=== PATIENT | female | born 1970 | race Caucasian/White ===

== ENCOUNTER 2016-06-03 18:36 | Observation (INO) | payer OTHER ==
[2016-06-03] MEDS ORDERED: ASPIRIN 81 MG CHEW PO STA (18:57)
[2016-06-03] MEDS ORDERED: NITROGLYCERIN OINT 1 INCH/GM PACKET TOPICAL STA (18:57)
--- NOTE | 2016-06-03 19:00 | ED ---
General Adult HPI - General Chief complaint: Chest Pain Stated complaint: chest pain Time Seen by Provider: 06/03/16 18:50 Source: patient, RN notes reviewed Mode of arrival: wheelchair Limitations: no limitations - History of Present Illness Initial comments: Is a 45-year-old female presents emergency Department complaining of chest pain. Patient states it started at 1:00 this afternoon. Patient states the pain does not radiate anywhere. Patient states however she is short of breath with the pain and the pain is similar to her heart attack pain however it is not as severe. Patient denies any diaphoresis. Patient denies any nausea. Patient states she does have high blood pressure and does continue to smoke. Patient denies any recent fever chills or cough. Patient states the pain is still continuing. Patient denies any abdominal pain patient denies any vomiting or diarrhea. Patient denies headache patient denies numbness weakness. He denies any lightheadedness dizziness or near syncopal episode. - Related Data Home Medications Medication Instructions Recorded Confirmed Budesonide-Formot 160-4.5 Mcg 2 puff INHALATION RT-BID 11/19/15 06/03/16 [Symbicort 160-4.5 Mcg Inhaler] Lisinopril 40 mg PO DAILY 11/19/15 06/03/16 Albuterol Nebulized [Ventolin 2.5 mg INHALATION RT-QID PRN 03/05/16 06/03/16 Nebulized] Metoprolol Tartrate [Lopressor] 50 mg PO BID 03/05/16 06/03/16 Albuterol Sulfate [Proair Hfa] 2 puff INHALATION RT-QID PRN 06/03/16 06/03/16 Ascorbic Acid [Vitamin C] 500 mg PO DAILY 06/03/16 06/03/16 Previous Rx's Medication Instructions Recorded Aspirin 325 mg PO DAILY tab 12/03/15 Atorvastatin [Lipitor] 80 mg PO HS #30 tab 12/03/15 Clopidogrel [Plavix] 75 mg PO DAILY #30 tab 12/03/15 Nitroglycerin Sl Tabs [Nitrostat] 0.4 mg SUBLINGUAL Q5M PRN #50 tab 12/03/15 Allergies Allergy/AdvReac Type Severity Reaction Status Date / Time No Known Allergies Allergy Verified 06/03/16 19:08 Review of Systems ROS Statement: Those systems with pertinent positive or pertinent negative responses have been documented in the HPI. ROS Other: All systems not noted in ROS Statement are negative. Past Medical History Past Medical History: Asthma, Hypertension History of Any Multi-Drug Resistant Organisms: None Reported Past Surgical History: Tubal Ligation Past Anesthesia/Blood Transfusion Reactions: No Reported Reaction Past Psychological History: No Psychological Hx Reported Smoking Status: Current every day smoker Past Alcohol Use History: Occasional Past Drug Use History: None Reported General Exam - General Exam Comments Initial Comments: GENERAL: Patient is well-developed and well-nourished. Patient is nontoxic and well- hydrated and is in mild distress. ENT: Neck is soft and supple. No significant lymphadenopathy is noted. Oropharynx is clear. Moist mucous membranes. Neck has full range of motion without eliciting any pain. EYES: The sclera were anicteric and conjunctiva were pink and moist. Extraocular movements were intact and pupils were equal round and reactive to light. Eyelids were unremarkable. PULMONARY: Unlabored respirations. Good breath sounds bilaterally. No audible rales rhonchi or wheezing was noted. CARDIOVASCULAR: There is a regular rate and rhythm without any murmurs gallops or rubs. ABDOMEN: Soft and nontender with normal bowel sounds. No palpable organomegaly was noted. There is no palpable pulsatile mass. SKIN: Skin is clear with no lesions or rashes and otherwise unremarkable. NEUROLOGIC: Patient is alert and oriented x3. Cranial nerves II through XII are grossly intact. Motor and sensory are also intact. Normal speech, volume and content. Symmetrical smile. MUSCULOSKELETAL: Normal extremities with adequate strength and full range of motion. No lower extremity swelling or edema. No calf tenderness. LYMPHATICS: No significant lymphadenopathy is noted PSYCHIATRIC: Normal psychiatric evaluation. Normal interpersonal interactions appears functionally intact in deals appropriately with others. No signs of depression. No signs of anxiety. Limitations: no limitations Course Vital Signs 06/03/16 06/03/16 06/03/16 18:49 19:08 19:34 Temperature 97.7 F Pulse Rate 86 96 92 Respiratory 18 18 18 Rate Blood Pressure 179/96 149/87 139/88 O2 Sat by Pulse 99 97 97 Oximetry Medical Decision Making - Medical Decision Making EKG shows normal sinus rhythm at 83 bpm PA interval is 112 QRS is 84 QT interval 376 QTC is [address] segment elevation or depression or T wave abnormalities are noted. Chest x-ray was normal. Because of the patient's significant past medical history as well as current symptoms I believe the patient was having unstable angina/70 patient on heparin. I spoke with Dr. WOODARD he was in agreement with admitting the patient I consult cardiology continue heparin nitroglycerin and aspirin on the floor. - Lab Data Result diagrams: 06/03/16 19:06 06/03/16 19:06 Lab Results 06/03/16 06/03/16 06/03/16 Range/Units 19:06 19:06 19:06 WBC 17.1 H (3.8-10.6) k/uL RBC 5.07 (3.80-5.40) m/uL Hgb 15.0 (11.4-16.0) gm/dL Hct 45.1 (34.0-46.0) % MCV 88.9 (80.0-100.0) fL MCH 29.6 (25.0-35.0) pg MCHC 33.3 (31.0-37.0) g/dL RDW 13.2 (11.5-15.5) % Plt Count 340 (150-450) k/uL Neutrophils % 79 % Lymphocytes % 13 % Monocytes % 3 % Eosinophils % 1 % Basophils % 2 % Neutrophils # 13.4 H (1.3-7.7) k/uL Lymphocytes # 2.3 (1.0-4.8) k/uL Monocytes # 0.6 (0-1.0) k/uL Eosinophils # 0.2 (0-0.7) k/uL Basophils # 0.4 H (0-0.2) k/uL PT (9.0-12.0) sec INR (<1.1) APTT (22.0-30.0) sec Sodium 141 (137-145) mmol/L Potassium 4.0 (3.5-5.1) mmol/L Chloride 103 (98-107) mmol/L Carbon Dioxide 25 (22-30) mmol/L Anion Gap 13 mmol/L BUN 12 (7-17) mg/dL Creatinine 0.65 (0.52-1.04) mg/dL Est GFR (MDRD) Af Amer >60 (>60 ml/min/1.73 sqM) Est GFR (MDRD) Non-Af >60 (>60 ml/min/1.73 sqM) Glucose 108 H (74-99) mg/dL Calcium 9.4 (8.4-10.2) mg/dL Magnesium 1.7 (1.6-2.3) mg/dL Total Bilirubin 0.5 (0.2-1.3) mg/dL AST 21 (14-36) U/L ALT 43 (9-52) U/L Alkaline Phosphatase 79 (38-126) U/L Total Creatine Kinase 39 (30-135) U/L CK-MB (CK-2) 0.6 (0.0-2.4) ng/mL CK-MB (CK-2) Rel Index 1.5 Troponin I <0.012 (0.000-0.034) ng/mL Total Protein 7.1 (6.3-8.2) g/dL Albumin 4.0 (3.5-5.0) g/dL 06/03/16 Range/Units 19:06 WBC (3.8-10.6) k/uL RBC (3.80-5.40) m/uL Hgb (11.4-16.0) gm/dL Hct (34.0-46.0) % MCV (80.0-100.0) fL MCH (25.0-35.0) pg MCHC (31.0-37.0) g/dL RDW (11.5-15.5) % Plt Count (150-450) k/uL Neutrophils % % Lymphocytes % % Monocytes % % Eosinophils % % Basophils % % Neutrophils # (1.3-7.7) k/uL Lymphocytes # (1.0-4.8) k/uL Monocytes # (0-1.0) k/uL Eosinophils # (0-0.7) k/uL Basophils # (0-0.2) k/uL PT 10.5 (9.0-12.0) sec INR 1.0 (<1.1) APTT 22.6 (22.0-30.0) sec Sodium (137-145) mmol/L Potassium (3.5-5.1) mmol/L Chloride (98-107) mmol/L Carbon Dioxide (22-30) mmol/L Anion Gap mmol/L BUN (7-17) mg/dL Creatinine (0.52-1.04) mg/dL Est GFR (MDRD) Af Amer (>60 ml/min/1.73 sqM) Est GFR (MDRD) Non-Af (>60 ml/min/1.73 sqM) Glucose (74-99) mg/dL Calcium (8.4-10.2) mg/dL Magnesium (1.6-2.3) mg/dL Total Bilirubin (0.2-1.3) mg/dL AST (14-36) U/L ALT (9-52) U/L Alkaline Phosphatase (38-126) U/L Total Creatine Kinase (30-135) U/L CK-MB (CK-2) (0.0-2.4) ng/mL CK-MB (CK-2) Rel Index Troponin I (0.000-0.034) ng/mL Total Protein (6.3-8.2) g/dL Albumin (3.5-5.0) g/dL Critical Care Time Critical Care Time: Yes Total Critical Care Time: 35 Disposition Clinical Impression: Unstable angina pectoris Disposition: ADMITTED IP TO THIS [facility] Time of Disposition: 20:08
[2016-06-03] MEDS: NITROGLYCERIN SL TABS 0.4 MG TAB SUBLINGUAL STA ×2 (19:03→19:08)
[2016-06-03 19:19] LABS: Basophils # (A) 0.4 k/uL (0-0.2); Basophils % (A) 2 %; CH 29.2; Eosinophils # (A) 0.2 k/uL (0-0.7); Eosinophils % (A) 1 %; HCT 45.1 % (34.0-46.0); HDW 2.36; Luc # (Auto) 0.35; Luc % (Auto) 2; Lymphocytes # (A) 2.3 k/uL (1.0-4.8); Lymphocytes % (A) 13 %; MCH 29.6 pg (25.0-35.0); MCHC 33.3 g/dL (31.0-37.0); MCV 88.9 fL (80.0-100.0); Mean Platelet Volume 7.1; Monocytes # (A) 0.6 k/uL (0-1.0); Monocytes % (A) 3 %; Neutrophils # (A) 13.4 k/uL (1.3-7.7); Neutrophils % (A) 79 %; RBC 5.07 m/uL (3.80-5.40); RDW 13.2 % (11.5-15.5); WBC 17.1 k/uL (3.8-10.6); WBC (Perox) 16.64
[2016-06-03 19:28] LABS: ALT 43 U/L (9-52); AST 21 U/L (14-36); Alkaline Phosphatase 79 U/L (38-126); Anion Gap 13 mmol/L; Blood Urea Nitrogen 12 mg/dL (7-17); Calcium 9.4 mg/dL (8.4-10.2); Carbon Dioxide 25 mmol/L (22-30); Chloride 103 mmol/L (98-107); Glucose 108 mg/dL (74-99); Magnesium 1.7 mg/dL (1.6-2.3); Non-African American GFR(MDRD) >60 (>60 ml/min/1.73 sqM); Sodium 141 mmol/L (137-145); Total Bilirubin 0.5 mg/dL (0.2-1.3); Total Protein 7.1 g/dL (6.3-8.2)
--- NOTE | 2016-06-03 19:41 | XR ---
EXAMINATION TYPE: XR chest 2V DATE OF EXAM: 06/03/2016 7:29 PM COMPARISON: Chest x-ray December 01, 2015. HISTORY: Chest pain and pressure, shortness of breath and cough. TECHNIQUE: Frontal and lateral views of the chest are obtained. FINDINGS: There is no focal air space opacity, pleural effusion, or pneumothorax seen. The cardiac silhouette size is within normal limits. The osseous structures are intact. IMPRESSION: No acute cardiopulmonary process. No significant change from prior.
[2016-06-03 19:48] LABS: Creatine Kinase 39 U/L (30-135)
[2016-06-03 19:52] LABS: Partial Thromboplastin Time 22.6 sec (22.0-30.0); Prothrombin Time 10.5 sec (9.0-12.0)
[2016-06-03 20:01] LABS: Creatine Kinase MB 0.6 ng/mL (0.0-2.4); Troponin I <0.012 ng/mL (0.000-0.034)
[2016-06-03] MEDS ORDERED: HEPARIN SODIUM,PORCINE 5,000 UNIT/ML 1 ML VIAL IV ONE (20:05)
[2016-06-03] MEDS ORDERED: NITROGLYCERIN SL TABS 0.4 MG TAB SUBLINGUAL PRN ×2 (20:08→22:04)
[2016-06-03] MEDS ORDERED: HEPARIN SODIUM,PORCINE/D5W PMX 25,000 UNIT in DEXTROSE/WATER 1 500ML.BAG IV SCH (20:15)
[2016-06-03] MEDS ORDERED: ALBUTEROL NEBULIZED 2.5 MG/3 ML INHALATION PRN ×2 (22:04)
[2016-06-03] MEDS ORDERED: ATORVASTATIN 80 MG TAB PO SCH (22:15)
[2016-06-03] MEDS: METOPROLOL TARTRATE 50 MG TAB PO SCH (22:58)
[2016-06-03] MEDS: PANTOPRAZOLE 40 MG TABLET PO SCH (22:58)
[2016-06-03] MEDS: NITROGLYCERIN OINT 1 INCH/GM PACKET TOPICAL SCH ×2 (23:02→23:03)
[2016-06-04 03:05] LABS: Cholesterol 107 mg/dL (<200); Creatine Kinase 24 U/L (30-135); HDL Cholesterol 53 mg/dL (40-60); Triglycerides 97 mg/dL (<150)
[2016-06-04 03:17] LABS: Creatine Kinase MB 0.4 ng/mL (0.0-2.4); Troponin I <0.012 ng/mL (0.000-0.034)
[2016-06-04] MEDS ORDERED: HEPARIN SODIUM,PORCINE 5,000 UNIT/ML 1 ML VIAL IV PRN (04:12)
[2016-06-04] MEDS: NITROGLYCERIN OINT 1 INCH/GM PACKET TOPICAL SCH (06:22)
[2016-06-04 07:31] LABS: Creatine Kinase 26 U/L (30-135)
[2016-06-04 07:45] LABS: Creatine Kinase MB 0.3 ng/mL (0.0-2.4); Troponin I <0.012 ng/mL (0.000-0.034)
[2016-06-04 07:48] VITALS: RESP 18; TEMP 97.9
[2016-06-04] MEDS ORDERED: SYMBICORT 160-4.5 MCG INHALER INHALATION SCH (08:00)
[2016-06-04] MEDS ORDERED: CLOPIDOGREL 75 MG TAB PO SCH (09:00)
[2016-06-04] MEDS ORDERED: ASPIRIN 325 MG TAB PO SCH ×2 (09:00)
[2016-06-04] MEDS ORDERED: LISINOPRIL 20 MG TAB PO SCH (09:00)
[2016-06-04 11:48] VITALS: BP 112/67; PULSE 89
[2016-06-04] MEDS: METOPROLOL TARTRATE 50 MG TAB PO SCH (11:55)
[2016-06-04] MEDS: PANTOPRAZOLE 40 MG TABLET PO SCH (11:56)
[2016-06-04] MEDS ORDERED: ASCORBIC ACID 500 MG TAB PO SCH (12:00)
--- NOTE | 2016-06-04 12:19 | P.HPIM ---
History of Present Illness H&P Date: 06/04/16 Chief Complaint: Chest pain. This is a history of physical and a 45-year-old white female who has an underlying history of previous myocardial infarctions and coronary artery disease. She is on Plavix but states yesterday at about 1 PM in the afternoon she had significant chest pressure. It did not radiate there is no nausea or diaphoresis but it was very similar, albeit less intense than her previous angina. She was appropriately evaluated and because of her previous history, she was admitted for appropriate unstable angina Review of Systems Constitutional: Denies chills, Denies fever Eyes: denies blurred vision, denies pain Ears, nose, mouth and throat: Denies headache, Denies sore throat Cardiovascular: Reports chest pain, Reports shortness of breath Respiratory: Denies cough Gastrointestinal: Denies abdominal pain, Denies diarrhea, Denies nausea, Denies vomiting Genitourinary: Denies dysuria, Denies hematuria Musculoskeletal: Denies myalgias Integumentary: Denies pruritus, Denies rash Neurological: Denies numbness, Denies weakness Psychiatric: Denies anxiety, Denies depression Endocrine: Denies fatigue, Denies weight change Past Medical History Past Medical History: Asthma, Hypertension, Myocardial Infarction ([place]) Last Myocardial Infarction Date:: 2015 History of Any Multi-Drug Resistant Organisms: None Reported Past Surgical History: Heart Catheterization With Stent, Tubal Ligation Additional Past Surgical History / Comment(s): STENT TO LAD Past Anesthesia/Blood Transfusion Reactions: No Reported Reaction Date of Last Stent Placement:: Past Psychological History: No Psychological Hx Reported Additional Psychological History / Comment(s): PT LIVES WITH BOYFRIEND MARI IN A SINGLE LEVEL HOME THAT HAS 2 STEPS TO GET INTO HOME. PT IS [employer]. NO ASSISTIVE DEVICES. NO OUTSIDE SERVICES. PT DOES FACTORY WORK. Smoking Status: Current every day smoker Past Alcohol Use History: Occasional Past Drug Use History: None Reported - Past Family History Mother Family Medical History: Hypertension Father Family Medical History: Diabetes Mellitus, Hypertension Medications and Allergies Home Medications Medication Instructions Recorded Confirmed Type Budesonide-Formot 160-4.5 Mcg 2 puff INHALATION RT-BID 11/19/15 06/03/16 History [Symbicort 160-4.5 Mcg Inhaler] RX: Lisinopril 40 mg PO DAILY 11/19/15 06/03/16 History Albuterol Nebulized [Ventolin 2.5 mg INHALATION RT-QID PRN 03/05/16 06/03/16 History Nebulized] Metoprolol Tartrate [Lopressor] 50 mg PO BID 03/05/16 06/03/16 History Albuterol Sulfate [Proair Hfa] 2 puff INHALATION RT-QID PRN 06/03/16 06/03/16 History Ascorbic Acid [Vitamin C] 500 mg PO DAILY 06/03/16 06/03/16 History Allergies Allergy/AdvReac Type Severity Reaction Status Date / Time No Known Allergies Allergy Verified 06/03/16 22:15 Physical Exam Vitals: Vital Signs Temp Pulse Pulse Pulse Resp BP BP 06/04/16 11:47 97.9 F 89 18 112/67 06/04/16 07:47 97.9 F 60 18 87/42 06/04/16 04:00 97.8 F 72 16 90/59 06/03/16 21:45 18 06/03/16 21:25 83 18 144/84 06/03/16 20:55 97.3 F L 94 18 134/82 06/03/16 20:45 97.7 F 78 16 124/72 Pulse Ox 06/04/16 11:47 97 06/04/16 07:47 95 06/04/16 04:00 95 06/03/16 21:45 06/03/16 21:25 98 06/03/16 20:55 97 06/03/16 20:45 97 Intake and Output 06/03/16 06/04/16 06/04/16 22:59 06:59 14:59 Intake Total 588.333 Balance 588.333 Intake: IV 440 0.9@20 240 Heparin Sodium,Porcine/ 200 D5w Pmx 25,000 unit In Dextrose/Water 1 500ml. bag @ 9.39 UNITS/KG/HR 20 .01 mls/hr IV .Q24H JARROD Rx#:[id number] Intake, IV Titration 148.333 Amount Heparin Sodium,Porcine/ 148.333 D5w Pmx 25,000 unit In Dextrose/Water 1 500ml. bag @ 9.39 UNITS/KG/HR 20 .01 mls/hr IV .Q24H JARROD Rx#:[id number] Other: Voiding Method Toilet Toilet # Voids 3 Weight 107.5 kg - Constitutional General appearance: obese - EENT Eyes: EOMI - Neck Neck: no lymphadenopathy - Respiratory Respiratory: bilateral: CTA - Cardiovascular Rhythm: regular Heart sounds: normal: S1, S2 - Gastrointestinal General gastrointestinal: no organomegaly, soft, no tenderness - Musculoskeletal Musculoskeletal: gait normal Results CBC & Chem 7: 06/03/16 19:06 06/03/16 19:06 Labs: Abnormal Lab Results - Last 24 Hours (Table) 06/04/16 06/04/16 06/04/16 Range/Units 02:11 02:11 06:49 APTT 32.2 H (22.0-30.0) sec Total Creatine Kinase 24 L 26 L (30-135) U/L Thrombosis Risk Factor Assmnt - Choose All That Apply Any of the Below Risk Factors Present?: Yes Each Factor Represents 1 point: Age 41-60 years, Obesity (BMI >25) Other Risk Factors: No Other congenital or acquired thrombophilia - If yes, enter type in comment: No Thrombosis Risk Factor Assessment Total Risk Factor Score: 2 Thrombosis Risk Factor Assessment Level: Low Risk Assessment and Plan (1) Unstable angina pectoris Status: Acute (2) CAD (coronary artery disease) Status: Acute (3) Hypertension Status: Acute Plan: Given her previous coronary artery disease. Rule out myocardial infarction. Stress Cardiolite test is pending. If negative, anticipate discharge. See orders otherwise. We'll follow elevated white blood cell count. Time with Patient: Greater than 30
--- NOTE | 2016-06-04 12:20 | NM ---
EXAMINATION TYPE: NM stress cardiolite complete DATE OF EXAM: 06/04/2016 11:44 AM COMPARISON: NONE HISTORY: Pain TECHNIQUE: After the intravenous administration of 11 mCi Tc 99m Sestamibi - Rest images obtained 75 minutes post injection. The patient exercised using a CHELITA protocol and 1 minute prior to peak ex ercise was injected with 26.7 mCi Tc 99m Sestamibi - Stress images obtained 30 minutes post injection . FINDINGS: Targeted heart rate was achieved during performance of the study. Review of stress and rest SPECT tha ges demonstrates no distinct perfusion abnormality. Gated analysis shows normal wall motion with an estimated left ventricular ejection fraction of 51 %. IMPRESSION: No scintigraphic evidence for reversible ischemia
--- NOTE | 2016-06-04 12:48 | EST ---
DATE OF SERVICE: 06/04/2016 AGE: 45Y SEX: F HT: - WT: - lbs. Protocol Umer: X Other: Cardiolite Stress Stage: 2 Dur. of Exercise: 4:30 *Heart Rate Blood Pressure *Rest: 72 Rest: 117/83 * *Max. Achieved: 156 Maximum BP: 150/54 85% PMHR: 145 100% PMHR: 175 *METS: 5.2 INDICATIONS: Chest pain. MEDICATIONS: Lisinopril, Symbicort, aspirin, Lipitor, Plavix, Nitrostat, Lopressor, Ventolin, vitamin C, ProAir. Baseline rhythm is sinus mechanism, rate of 72. Normal axis and intervals. Normal electrocardiogram. Baseline blood pressure 117/83 mmHg. Patient exercised Umer protocol for 4 minutes 30 seconds reaching peak rate of 156 beats per minute, which is equal to 89% maximum predicted heart rate; peak blood pressure 150/54 mmHg. Test was terminated due to fatigue. There was no chest pain. Electrocardiograph monitoring revealed a 0.[address] segment depression that resolved in recovery. Cardiolite was injected at peak exercise. CONCLUSION: 1. Poor exercise tolerance with borderline positive electrocardiograph stress testing. 2. Nuclear images will be reported separately.
== END 2016-06-04 15:38 | disposition home or self-care (01) ==
LOC: EC 18:36 → 3OBS 20:08
PROVIDERS: ADMIT Family Medicine; ATTEND Family Medicine
DX: I25.110 Atherosclerotic heart disease of native coronary artery with unstable angina pectoris (principal); J45.909 Unspecified asthma, uncomplicated; D72.829 Elevated white blood cell count, unspecified; I10 Essential (primary) hypertension; I25.2 Old myocardial infarction; F17.200 Nicotine dependence, unspecified, uncomplicated; Z79.02 Long term (current) use of antithrombotics/antiplatelets; Z95.5 Presence of coronary angioplasty implant and graft; Z82.49 Family history of ischemic heart disease and other diseases of the circulatory system; Z83.3 Family history of diabetes mellitus; Z79.899 Other long term (current) drug therapy; Z79.82 Long term (current) use of aspirin; Z79.51 Long term (current) use of inhaled steroids
CPT/HCPCS: 93005 ×2; 96366 ×2; 96376 ×2; 96365; 99291; 36415; 93017; 80061; 80053; 82550 ×2; 82553 ×2; 83735; 84484 ×2; 85025; 85610; 85730 ×2; 71020; 78452; G0378 ×2; A9500; J1644 ×3

== ENCOUNTER 2017-02-03 07:33 | Emergency (ER) | payer OTHER ==
[2017-02-03] MEDS ORDERED: ALBUTEROL NEBULIZED 2.5 MG/3 ML INHALATION STA (07:51)
[2017-02-03] MEDS ORDERED: IPRATROPIUM 0.5 MG/2.5 ML NEBU INHALATION STA (07:51)
[2017-02-03] MEDS ORDERED: DEXAMETHASONE SOD PHOSPHATE 10 MG/ML 1 ML VIAL IV STA (07:52)
[2017-02-03] MEDS ORDERED: KETOROLAC 30 MG/ML 1 ML VIAL IVP STA (07:52)
[2017-02-03] MEDS ORDERED: SODIUM CHLORIDE 0.9% 1,000 ML IV ONE (07:53)
--- NOTE | 2017-02-03 07:55 | ED ---
General Adult HPI - General Chief complaint: Upper Respiratory Infection Stated complaint: CHEST PAIN, SINUSES Time Seen by Provider: 02/03/17 07:39 Source: patient, RN notes reviewed, old records reviewed Mode of arrival: ambulatory Limitations: no limitations - History of Present Illness Initial comments: 46 yo female with history of asthma and CAD presents for evaluation of upper respiratory infection and cough. Patient states she has had nasal congestion, mild sore throat, and cough for the past 5 days. She is to have some difficulty breathing over the past 24 hours. She is a current smoker. She has had subjective fever and chills. No abdominal pain. No nausea vomiting. No central chest pain. She does have some lateral chest tightness with cough. History of previous VT in 2016 status post stenting. Patient states the symptoms are in no way similar to previous VT. - Related Data Home Medications Medication Instructions Recorded Confirmed Metoprolol Tartrate [Lopressor] 50 mg PO BID 03/05/16 02/03/17 Previous Rx's Medication Instructions Recorded Aspirin 325 mg PO DAILY tab 12/03/15 Albuterol Inhaler [Ventolin Hfa 1 - 2 puff INHALATION Q4HR PRN #1 02/03/17 Inhaler] inhaler Azithromycin [Zithromax Z-pack] 0 mg PO DIRECTED #6 tab 02/03/17 predniSONE 50 mg PO DAILY #5 tab 02/03/17 Allergies Allergy/AdvReac Type Severity Reaction Status Date / Time No Known Allergies Allergy Verified 02/03/17 07:43 Review of Systems ROS Statement: Those systems with pertinent positive or pertinent negative responses have been documented in the HPI. ROS Other: All systems not noted in ROS Statement are negative. Past Medical History Past Medical History: Asthma, Hypertension, Myocardial Infarction ([place]) Last Myocardial Infarction Date:: 2015 History of Any Multi-Drug Resistant Organisms: None Reported Past Surgical History: Heart Catheterization With Stent, Tubal Ligation Additional Past Surgical History / Comment(s): STENT TO LAD Past Anesthesia/Blood Transfusion Reactions: No Reported Reaction Date of Last Stent Placement:: Past Psychological History: No Psychological Hx Reported Smoking Status: Current every day smoker Past Alcohol Use History: Occasional Past Drug Use History: None Reported - Past Family History Mother Family Medical History: Hypertension Father Family Medical History: Diabetes Mellitus, Hypertension General Exam Limitations: no limitations General appearance: alert, in no apparent distress Head exam: Present: atraumatic, normocephalic Eye exam: Present: normal appearance, PERRL ENT exam: Present: other (Physical congestion, mild pharyngeal erythema, no tonsillar swelling or exudate) Neck exam: Present: normal inspection Respiratory exam: Present: wheezes. Absent: respiratory distress Cardiovascular Exam: Present: regular rate, normal rhythm GI/Abdominal exam: Present: soft. Absent: distended, tenderness Extremities exam: Present: normal inspection, normal capillary refill. Absent: pedal edema Neurological exam: Present: alert, oriented X3, CN II-XII intact. Absent: motor sensory deficit Psychiatric exam: Present: normal affect, normal mood Skin exam: Present: warm, dry, intact Course Vital Signs 02/03/17 02/03/17 02/03/17 07:34 07:49 08:22 Temperature 97.6 F Pulse Rate 86 78 78 Respiratory 18 16 16 Rate Blood Pressure 193/100 146/109 169/87 O2 Sat by Pulse 98 95 98 Oximetry 02/03/17 02/03/17 08:28 08:43 Temperature Pulse Rate 78 84 Respiratory Rate Blood Pressure O2 Sat by Pulse Oximetry EKG Findings - EKG Comments: EKG Findings:: EKG shows normal sinus rhythm, ventricular rate 75, WA interval 122, QRS duration 84, QTC 433 no signs ischemia Medical Decision Making - Medical Decision Making 46 yo female presenting with upper respiratory tract infection and asthma exacerbation. Patient's given albuterol, Atrovent, steroids, on reevaluation she has increased air entry, has still has mild scattered expiratory wheezing no respiratory distress. Laboratory studies reveal mild leukocytosis 11.3, magnesium is 1.5 and is replaced. Chest x-ray shows no focal pneumonia. Patient will be given a prescription for albuterol, azithromycin, and prednisone. She will follow-up with her primary care physician. Return to emergency department with worsening symptoms. - Lab Data Result diagrams: 02/03/17 08:00 02/03/17 08:00 Lab Results 02/03/17 02/03/17 02/03/17 Range/Units 08:00 08:00 08:00 WBC 11.3 H (3.8-10.6) k/uL RBC 5.41 H (3.80-5.40) m/uL Hgb 15.1 (11.4-16.0) gm/dL Hct 47.9 H (34.0-46.0) % MCV 88.7 (80.0-100.0) fL MCH 27.9 (25.0-35.0) pg MCHC 31.5 (31.0-37.0) g/dL RDW 14.6 (11.5-15.5) % Plt Count 395 (150-450) k/uL Neutrophils % 74 % Lymphocytes % 16 % Monocytes % 4 % Eosinophils % 5 % Basophils % 1 % Neutrophils # 8.4 H (1.3-7.7) k/uL Lymphocytes # 1.8 (1.0-4.8) k/uL Monocytes # 0.5 (0-1.0) k/uL Eosinophils # 0.5 (0-0.7) k/uL Basophils # 0.1 (0-0.2) k/uL PT 10.7 (9.0-12.0) sec INR 1.1 (<1.2) APTT 22.6 (22.0-30.0) sec Sodium 142 (137-145) mmol/L Potassium 4.3 (3.5-5.1) mmol/L Chloride 107 (98-107) mmol/L Carbon Dioxide 25 (22-30) mmol/L Anion Gap 10 mmol/L BUN 10 (7-17) mg/dL Creatinine 0.61 (0.52-1.04) mg/dL Est GFR (MDRD) Af Amer >60 (>60 ml/min/1.73 sqM) Est GFR (MDRD) Non-Af >60 (>60 ml/min/1.73 sqM) Glucose 108 H (74-99) mg/dL Calcium 9.4 (8.4-10.2) mg/dL Magnesium 1.5 L (1.6-2.3) mg/dL Total Bilirubin 0.4 (0.2-1.3) mg/dL AST 20 (14-36) U/L ALT 46 (9-52) U/L Alkaline Phosphatase 82 (38-126) U/L Total Protein 7.2 (6.3-8.2) g/dL Albumin 4.1 (3.5-5.0) g/dL Disposition Clinical Impression: Upper respiratory infection, Asthma exacerbation Disposition: HOME SELF-CARE Condition: Good Instructions: Asthma (ED), Upper Respiratory Infection (ED) Prescriptions: Albuterol Inhaler [Ventolin Hfa Inhaler] 1 - 2 puff INHALATION Q4HR PRN #1 inhaler PRN Reason: Shortness Of Breath Azithromycin [Zithromax Z-pack] 0 mg PO DIRECTED #6 tab predniSONE 50 mg PO DAILY #5 tab Referrals: Reed Champagne MD [Primary Care Provider] - 1-2 days Time of Disposition: 08:50
[2017-02-03 08:11] VITALS: RESP 16
--- NOTE | 2017-02-03 08:15 | XR ---
EXAMINATION TYPE: XR chest 2V DATE OF EXAM: 02/03/2017 COMPARISON: Chest x-ray June 03, 2016 HISTORY: Cough and congestion since Wednesday. TECHNIQUE: Frontal and lateral views of the chest are obtained. FINDINGS: There is no focal air space opacity, pleural effusion, or pneumothorax seen. The cardiac silhouette size is within normal limits. The osseous structures are intact. IMPRESSION: No suspicious acute pulmonary process. No significant change from prior.
[2017-02-03 08:19] LABS: Basophils # (A) 0.1 k/uL (0-0.2); Basophils % (A) 1 %; CH 28.7; CHCM 32.5; Eosinophils # (A) 0.5 k/uL (0-0.7); Eosinophils % (A) 5 %; HCT 47.9 % (34.0-46.0); HDW 2.37; HGB 15.1 gm/dL (11.4-16.0); Luc # (Auto) 0.09; Luc % (Auto) 1; Lymphocytes # (A) 1.8 k/uL (1.0-4.8); Lymphocytes % (A) 16 %; MCH 27.9 pg (25.0-35.0); MCHC 31.5 g/dL (31.0-37.0); MCV 88.7 fL (80.0-100.0); Mean Platelet Volume 7.2; Monocytes # (A) 0.5 k/uL (0-1.0); Monocytes % (A) 4 %; Neutrophils # (A) 8.4 k/uL (1.3-7.7); Neutrophils % (A) 74 %; RBC 5.41 m/uL (3.80-5.40); RDW 14.6 % (11.5-15.5); WBC 11.3 k/uL (3.8-10.6); WBC (Perox) 11.58
[2017-02-03 08:28] LABS: INR 1.1 (<1.2); Partial Thromboplastin Time 22.6 sec (22.0-30.0); Prothrombin Time 10.7 sec (9.0-12.0)
[2017-02-03 08:30] LABS: ALT 46 U/L (9-52); AST 20 U/L (14-36); Alkaline Phosphatase 82 U/L (38-126); Anion Gap 10 mmol/L; Blood Urea Nitrogen 10 mg/dL (7-17); Calcium 9.4 mg/dL (8.4-10.2); Carbon Dioxide 25 mmol/L (22-30); Chloride 107 mmol/L (98-107); Glucose 108 mg/dL (74-99); Magnesium 1.5 mg/dL (1.6-2.3); Non-African American GFR(MDRD) >60 (>60 ml/min/1.73 sqM); Potassium 4.3 mmol/L (3.5-5.1); Sodium 142 mmol/L (137-145); Total Bilirubin 0.4 mg/dL (0.2-1.3); Total Protein 7.2 g/dL (6.3-8.2)
[2017-02-03] MEDS ORDERED: MAGNESIUM SULFATE-D5W PMX 1 GM in DEXTROSE/WATER 1 100ML.BAG IVPB ONE (08:38)
[2017-02-03 08:44] LABS: Creatine Kinase 49 U/L (30-135)
[2017-02-03 08:57] LABS: Creatine Kinase MB 0.9 ng/mL (0.0-2.4); Troponin I <0.012 ng/mL (0.000-0.034)
[2017-02-03] MEDS ORDERED: ACETAMINOPHEN TAB 500 MG TAB PO STA (09:22)
[2017-02-03 09:31] VITALS: TEMP 98.1
[2017-02-03 10:07] VITALS: BP 169/91; PULSE 78
== END 2017-02-03 10:06 | disposition home or self-care (01) ==
LOC: EC 07:33
DX: J06.9 Acute upper respiratory infection, unspecified (principal); J45.901 Unspecified asthma with (acute) exacerbation; I10 Essential (primary) hypertension; I25.2 Old myocardial infarction; F17.200 Nicotine dependence, unspecified, uncomplicated; Z95.5 Presence of coronary angioplasty implant and graft; Z79.899 Other long term (current) drug therapy
CPT/HCPCS: 36415; 71020; 80053; 82550; 82553; 83735; 83880; 84484; 85025; 85610; 85730; 93005; 94640; 96365; 96375; 99284

== ENCOUNTER → 2018-08-25 | Outpatient (CLI) | payer BC ==
--- NOTE | 2018-08-25 15:57 | MR ---
EXAMINATION TYPE: MR lumbar spine wo con DATE OF EXAM: 08/25/2018 COMPARISON: None HISTORY: 47-year-old female with low back pain extending into the bilateral lower extremities TECHNIQUE: Multiplanar, multisequence images of the lumbar spine were acquired. FINDINGS: Vertebral body heights are preserved and alignment is maintained. Mild heterogeneous marrow signal without suspicious bone marrow placement. Findings likely relate to areas of red marrow hyperplasia. Some fatty Modic type II endplate changes present anteriorly at L2-L 3. There is a component of mild congenital spinal canal stenosis mid to lower lumbar spine with AP canal dimension of 1.2 cm. Conus medullaris is normal. Variable mild intervertebral disc desiccation. No large focal disc herniation seen. Facet arthropathy mid to lower lumbar spine. From T12 through L3 levels, no significant spinal canal or foraminal stenosis. At L3-L4, there is bulging disc eccentric towards the right which contributes to mild right neural fo raminal stenosis along with facet arthropathy. However, disc material prominently abuts the exiting r ight L3 nerve root, refer to sagittal image 11. Mild congenital canal narrowing. At L4-L5, facet arthropathy without significant canal or foraminal stenosis. At L5-S1, facet arthropathy without significant canal or foraminal stenosis. IMPRESSION: 1. Mild degenerative disc disease. Facet arthropathy mid to lower lumbar spine. Changes are superimpo sed on a mild congenital spinal canal narrowing of the mid to lower lumbar spine. 2. No focal disc herniation or significant spinal canal stenosis. 3. Bulging disc eccentric towards the right at L3-L4 causes mild right neural foraminal stenosis but appears to prominently abut the exiting right L3 nerve root. 4. Prominent red marrow hyperplasia which can be seen in the setting of anemia, obesity, smoking, and chronic disease.
== END | disposition home or self-care (01) ==
LOC: RADMRIMAIN 12:34
PROVIDERS: ATTEND Physical Medicine & Rehabilitation
DX: M48.061 Spinal stenosis, lumbar region without neurogenic claudication (principal); M51.36 Other intervertebral disc degeneration, lumbar region; M46.97 Unspecified inflammatory spondylopathy, lumbosacral region; M51.26 Other intervertebral disc displacement, lumbar region; Z95.5 Presence of coronary angioplasty implant and graft
CPT/HCPCS: 72148

== ENCOUNTER 2018-11-23 01:42 | Emergency (ER) | payer BC ==
[2018-11-23 01:53] VITALS: TEMP 98.5
[2018-11-23] MEDS ORDERED: AZITHROMYCIN 500 MG TAB PO STA (02:14)
[2018-11-23] MEDS ORDERED: ALBUTEROL NEBULIZED 2.5 MG/3 ML INHALATION STA (02:14)
[2018-11-23] MEDS ORDERED: OXYMETAZOLINE 0.05% NASL SPRAY 1 SPRAY BOTTLE NASAL STA (02:14)
--- NOTE | 2018-11-23 02:45 | ED ---
URI HPI - General Chief Complaint: Upper Respiratory Infection Stated Complaint: Chest,face,ear pain Time Seen by Provider: 11/23/18 01:43 Source: patient Mode of arrival: ambulatory Limitations: no limitations - History of Present Illness MD Complaint: cough, nasal congestion, sinus pain Onset/Timin -: week(s) Severity: moderate Quality: dull, other (Pressure) Consistency: constant Improves With: nothing Worsens With: nothing Associated Symptoms: nasal congestion, cough - Related Data Home Medications Medication Instructions Recorded Confirmed Metoprolol Tartrate [Lopressor] 50 mg PO BID 03/05/16 02/03/17 Previous Rx's Medication Instructions Recorded Aspirin 325 mg PO DAILY tab 12/03/15 Albuterol Inhaler [Ventolin Hfa 1 - 2 puff INHALATION Q4HR PRN #1 02/03/17 Inhaler] inhaler Azithromycin [Zithromax Z-pack] 0 mg PO DIRECTED #6 tab 02/03/17 predniSONE 50 mg PO DAILY #5 tab 02/03/17 Azithromycin [Zithromax Z-pack] 250 mg PO DIRECTED #6 tab 11/23/18 Allergies Allergy/AdvReac Type Severity Reaction Status Date / Time No Known Allergies Allergy Verified 11/23/18 01:53 Review of Systems ROS Statement: Those systems with pertinent positive or pertinent negative responses have been documented in the HPI. ROS Other: All systems not noted in ROS Statement are negative. Constitutional: Denies: fever, chills Eyes: Denies: eye pain, eye discharge, vision change ENT: Reports: ear pain, congestion Respiratory: Reports: cough, wheezes. Denies: dyspnea, hemoptysis Cardiovascular: Denies: chest pain, palpitations Skin: Denies: rash Neurological: Denies: headache, weakness, numbness Past Medical History Past Medical History: Asthma, Hypertension, Myocardial Infarction ([place]) Last Myocardial Infarction Date:: 2015 History of Any Multi-Drug Resistant Organisms: None Reported Past Surgical History: Back Surgery, Heart Catheterization With Stent, Tubal Ligation Additional Past Surgical History / Comment(s): STENT TO LAD Past Anesthesia/Blood Transfusion Reactions: No Reported Reaction Date of Last Stent Placement:: Past Psychological History: No Psychological Hx Reported Smoking Status: Current every day smoker Past Alcohol Use History: Occasional Past Drug Use History: None Reported - Past Family History Mother Family Medical History: Hypertension Father Family Medical History: Diabetes Mellitus, Hypertension General Exam Limitations: no limitations General appearance: alert, in no apparent distress Head exam: Present: atraumatic, normocephalic Eye exam: Present: normal appearance, EOMI. Absent: scleral icterus, conjunctival injection ENT exam: Present: normal oropharynx, mucous membranes moist, TM's normal bilaterally, normal external ear exam Neck exam: Present: normal inspection, full ROM, lymphadenopathy. Absent: tenderness, meningismus Respiratory exam: Present: wheezes. Absent: normal lung sounds bilaterally, respiratory distress, rales, rhonchi, stridor Cardiovascular Exam: Present: regular rate, normal rhythm, normal heart sounds. Absent: systolic murmur, diastolic murmur, rubs, gallop GI/Abdominal exam: Present: soft. Absent: tenderness Neurological exam: Present: alert Skin exam: Present: warm, dry, intact, normal color. Absent: rash Course Vital Signs 11/23/18 11/23/18 11/23/18 01:51 02:14 02:43 Temperature 98.5 F Pulse Rate 111 H 100 Respiratory 22 20 Rate Blood Pressure 102/73 O2 Sat by Pulse 95 Oximetry 11/23/18 11/23/18 02:52 03:05 Temperature 98.5 F Pulse Rate 100 98 Respiratory 18 Rate Blood Pressure 102/74 O2 Sat by Pulse 100 Oximetry Disposition Clinical Impression: Sinusitis Disposition: HOME SELF-CARE Condition: Good Instructions (If sedation given, give patient instructions): Rhinosinusitis (ED) Prescriptions: Azithromycin [Zithromax Z-pack] 250 mg PO DIRECTED #6 tab Is patient prescribed a controlled substance at d/c from ED?: No Referrals: Reed Champagne MD [Primary Care Provider] - 1-2 days
[2018-11-23 03:07] VITALS: BP 102/74; PULSE 98; RESP 18
== END 2018-11-23 03:00 | disposition home or self-care (01) ==
LOC: EC 01:42
DX: J32.9 Chronic sinusitis, unspecified (principal); R06.2 Wheezing; I10 Essential (primary) hypertension; I25.2 Old myocardial infarction; F17.200 Nicotine dependence, unspecified, uncomplicated; Z79.899 Other long term (current) drug therapy; Z95.5 Presence of coronary angioplasty implant and graft
CPT/HCPCS: 94640; 99283

== ENCOUNTER 2019-09-14 18:14 | Emergency (ER) | payer BC ==
[2019-09-14 19:45] LABS: Appearance,Urine Cloudy (Clear); Bacteria,Urine Rare /hpf; Bilirubin,Urine Negative (Negative); Blood,Urine Moderate (Negative); Color,Urine Yellow; Glucose,Urine (UA) Trace (Negative); Ketones,Urine Trace (Negative); Leukocyte Esterase,Urine Moderate (Negative); Mucus,Urine Rare /hpf; Nitrite,Urine Positive (Negative); Protein,Urine 2+ (Negative); RBC,Urine >182 /hpf (0-5); Specific Gravity,Urine 1.025 (1.001-1.035); Squamous Epithelial Cell,Urine 3 /hpf (0-4); Urobilinogen,Urine <2.0 mg/dL (<2.0); WBC,Urine 43 /hpf (0-5)
[2019-09-14] MEDS ORDERED: cefTRIAXone 1,000 MG VIAL (IM USE) IM STA (19:57)
[2019-09-14] MEDS ORDERED: IBUPROFEN 600 MG TAB PO STA (20:01)
--- NOTE | 2019-09-14 20:03 | ED ---
General Adult HPI - General Source: patient Mode of arrival: ambulatory Limitations: no limitations <Garry Pang - Last Filed: 09/14/19 20:04> <Ana Sales - Last Filed: 09/18/19 00:51> - General Chief complaint: Urogenital Stated complaint: UTI Time Seen by Provider: 09/14/19 18:35 - History of Present Illness Initial comments: 48-year-old female presents to the emergency department for a chief complaint of dysuria. Patient states she has had burning and pain with urination for 6 days now. Her pubic pressure especially when urinating. Patient does admit that she has been urinating more often than normal. Patient denies difficulty urinating. Patient denies upper back or low back pain. Denies fevers or chills. Denies nausea or vomiting.Patient has no other complaints at this time including shortness of breath, chest pain, nausea or vomiting, headache, or visual changes. (Garry Pang) - Related Data Home Medications Medication Instructions Recorded Confirmed Metoprolol Tartrate [Lopressor] 50 mg PO BID 03/05/16 02/03/17 Previous Rx's Medication Instructions Recorded Aspirin 325 mg PO DAILY tab 12/03/15 Albuterol Inhaler (Mhu) [Ventolin 1 - 2 puff INHALATION Q4HR PRN #1 02/03/17 Hfa Inhaler (Mhu)] inhaler Azithromycin [Zithromax Z-pack] 0 mg PO DIRECTED #6 tab 02/03/17 predniSONE 50 mg PO DAILY #5 tab 02/03/17 Azithromycin [Zithromax Z-pack] 250 mg PO DIRECTED #6 tab 11/23/18 Cephalexin [Keflex] 500 mg PO Q12HR 14 Days #28 cap 09/14/19 Phenazopyridine HCl [Pyridium] 100 mg PO TID 1 Days #3 tab 09/14/19 Allergies Allergy/AdvReac Type Severity Reaction Status Date / Time No Known Allergies Allergy Verified 09/14/19 18:22 Review of Systems ROS Other: All systems not noted in ROS Statement are negative. <Garry Pang - Last Filed: 09/14/19 20:04> ROS Other: All systems not noted in ROS Statement are negative. <Ana Sales - Last Filed: 09/18/19 00:51> ROS Statement: Those systems with pertinent positive or pertinent negative responses have been documented in the HPI. Past Medical History Past Medical History: Asthma, Hypertension, Myocardial Infarction ([place]) Last Myocardial Infarction Date:: 2015 History of Any Multi-Drug Resistant Organisms: None Reported Past Surgical History: Back Surgery, Heart Catheterization With Stent, Tubal Ligation Additional Past Surgical History / Comment(s): STENT TO LAD Past Anesthesia/Blood Transfusion Reactions: No Reported Reaction Date of Last Stent Placement:: Past Psychological History: No Psychological Hx Reported Smoking Status: Current every day smoker Past Alcohol Use History: Occasional Past Drug Use History: None Reported - Past Family History Mother Family Medical History: Hypertension Father Family Medical History: Diabetes Mellitus, Hypertension <Garry Pang - Last Filed: 09/14/19 20:04> General Exam Limitations: no limitations General appearance: alert, in no apparent distress Head exam: Present: atraumatic, normocephalic, normal inspection Eye exam: Present: normal appearance, PERRL, EOMI. Absent: scleral icterus, conjunctival injection, periorbital swelling ENT exam: Present: normal exam, mucous membranes moist Neck exam: Present: normal inspection, full ROM. Absent: tenderness, meningismus, lymphadenopathy Respiratory exam: Present: normal lung sounds bilaterally. Absent: respiratory distress, wheezes, rales, rhonchi, stridor Cardiovascular Exam: Present: regular rate, normal rhythm, normal heart sounds. Absent: systolic murmur, diastolic murmur, rubs, gallop, clicks GI/Abdominal exam: Present: soft, normal bowel sounds. Absent: distended, tenderness (no tenderness of the abdomen, no guarding or rebound), guarding, rebound, rigid Back exam: Absent: CVA tenderness (R), CVA tenderness (L) Neurological exam: Present: alert <Garry Pang P - Last Filed: 09/14/19 20:04> Course Vital Signs 09/14/19 09/14/19 18:18 20:22 Temperature 98.7 F 97.2 F L Pulse Rate 95 90 Respiratory 18 18 Rate Blood Pressure 187/109 149/104 O2 Sat by Pulse 98 96 Oximetry Medical Decision Making <Garry Pang P - Last Filed: 09/14/19 20:04> <Ana Sales - Last Filed: 09/18/19 00:51> - Medical Decision Making Vitals are stable. Patient hypertensive likely secondary to discomfort however will follow up with primary care. Physical exam revealed no abdominal tenderness. No CVA tenderness. Otherwise asymptomatic. Urinalysis does show positive nitrates with 182 red blood cells and 43 white blood cells. Urine culture pending. Patient will be treated with Keflex. Will follow up with primary care. Will return here for any worsening symptoms. Discussed strict return parameters with patient. (Garry Pang) I was available for consultation in the emergency department. The history and physical exam were done by the midlevel provider. I was consulted for this patients care. I reviewed the case with the midlevel provider and based on their presentation of the patient, I agree with the assessment, medical decision making and plan of care as documented. Chart was dictated using Cozy dictation software. Attempts were made to correct any dictation errors however some typographical errors may persist. Patient was seen during a national state of emergency due to the Covid-19 pandemic. (Ana Sales) - Lab Data Lab Results 09/14/19 09/14/19 Range/Units 18:55 18:55 Urine Color Yellow Urine Appearance Cloudy H (Clear) Urine pH 7.0 (5.0-8.0) Ur Specific [place] 1.025 (1.001-1.035) Urine Protein 2+ H (Negative) Urine Glucose (UA) Trace H (Negative) Urine Ketones Trace H (Negative) Urine Blood Moderate H (Negative) Urine Nitrite Positive H (Negative) Urine Bilirubin Negative (Negative) Urine Urobilinogen <2.0 (<2.0) mg/dL Ur Leukocyte Esterase Moderate H (Negative) Urine RBC >182 H (0-5) /hpf Urine WBC 43 H (0-5) /hpf Ur Squamous Epith Cells 3 (0-4) /hpf Urine Bacteria Rare H (None) /hpf Urine Mucus Rare H (None) /hpf Urine HCG, Qual Not Detected (Not Detectd) Disposition Is patient prescribed a controlled substance at d/c from ED?: No Time of Disposition: 20:01 <Garry Pang - Last Filed: 09/14/19 20:04> <Ana Sales - Last Filed: 09/18/19 00:51> Clinical Impression: Urinary tract infection Disposition: HOME SELF-CARE Condition: Good Instructions (If sedation given, give patient instructions): Urinary Tract Infection in Women (ED) Additional Instructions: Please take antibiotic as directed. Please follow-up with primary care in 1-2 days for a recheck. If you have any worsening symptoms return to the emergency room. These could include fevers, worsening abdominal pain, or any upper back pain. Prescriptions: Cephalexin [Keflex] 500 mg PO Q12HR 14 Days #28 cap Phenazopyridine HCl [Pyridium] 100 mg PO TID 1 Days #3 tab Referrals: Reed Champagne MD [Primary Care Provider] - 1-2 days
[2019-09-14] MEDS ORDERED: LIDOCAINE 1% INJ 10MG/ML (20 ML MDV) IM ONE (20:14)
--- NOTE | 2019-09-15 09:35 | CDI ---
Dear Garry Pang, PAC Please provide procedure done related to lidocaine administered. Thank you, Rama López Mission[facility] Coordinator If you have any questions, please contact Manager Performance at [phone] [facility]
[2019-09-15 10:24] VITALS: BP 149/104; PULSE 90; RESP 18; TEMP 97.2
== END 2019-09-14 20:27 | disposition home or self-care (01) ==
LOC: EC 18:14
DX: N39.0 Urinary tract infection, site not specified (principal); I10 Essential (primary) hypertension; I25.2 Old myocardial infarction; Z95.5 Presence of coronary angioplasty implant and graft; F17.200 Nicotine dependence, unspecified, uncomplicated; Z98.51 Tubal ligation status; Z79.899 Other long term (current) drug therapy
CPT/HCPCS: 99283; 96372 ×2; 81001; 81025; 87086; 87077; 87186; J2001; J0696

== ENCOUNTER → 2020-12-30 | Outpatient (CLI) | payer BC ==
--- NOTE | 2020-12-31 09:23 | XR ---
Right shoulder HISTORY: Pain 3 views of the right shoulder Acromioclavicular joint shows arthropathy. Distal acromion is downturned. No fracture or dislocation evident. Right lung apex as visualized is normal. There is a distal acromial spur. Some mild spurring at the glenohumeral joint noted. IMPRESSION: Correlate for impingement. Osteoarthritis.
== END | disposition home or self-care (01) ==
LOC: RADXRMAIN 16:52
PROVIDERS: ATTEND Family Medicine
DX: M19.011 Primary osteoarthritis, right shoulder (principal)

== ENCOUNTER 2021-04-02 13:01 | Emergency (ER) | payer BC ==
[2021-04-02 13:07] VITALS: RESP 18
[2021-04-02] MEDS ORDERED: KETOROLAC 15 MG/ML 1 ML VIAL IM STA (13:53)
[2021-04-02] MEDS ORDERED: hydrOXYzine HCL 25 MG TAB PO STA (13:53)
--- NOTE | 2021-04-02 14:13 | ED ---
General Adult HPI - General Chief complaint: Extremity Injury, Upper Stated complaint: bilat hand swelling/itching Time Seen by Provider: 04/02/21 13:21 Source: patient, RN notes reviewed Mode of arrival: ambulatory Limitations: no limitations - History of Present Illness Initial comments: 50-year-old female with a past medical history of asthma, hypertension presents to the emergency room for a chief complaint of s itching hands. Patient states since yesterday she has had itching of her palms bilaterally and some swelling in the back of her hands. Patient denies any constitutional symptoms. Patient states she cried call her doctor but he wasn't in the office. She did try Benadryl didn't seem to help much.Patient has no other complaints at this time including shortness of breath, chest pain, abdominal pain, nausea or vomiting, headache, or visual changes. - Related Data Home Medications Medication Instructions Recorded Confirmed Metoprolol Tartrate [Lopressor] 50 mg PO BID 03/05/16 02/03/17 Previous Rx's Medication Instructions Recorded Aspirin 325 mg PO DAILY tab 12/03/15 Albuterol Inhaler (Mhu) [Ventolin 1 - 2 puff INHALATION Q4HR PRN #1 02/03/17 Hfa Inhaler (Mhu)] inhaler Azithromycin [Zithromax Z-pack] 0 mg PO DIRECTED #6 tab 02/03/17 predniSONE 50 mg PO DAILY #5 tab 02/03/17 Azithromycin [Zithromax Z-pack (6 250 mg PO DIRECTED #6 tab 11/23/18 tabs)] Cephalexin [Keflex] 500 mg PO Q12HR 14 Days #28 cap 09/14/19 Phenazopyridine HCl [Pyridium] 100 mg PO TID 1 Days #3 tab 09/14/19 hydrOXYzine HCL [Atarax] 25 mg PO TID PRN #20 tab 04/02/21 predniSONE 50 mg PO DAILY #5 tablet 04/02/21 Allergies Allergy/AdvReac Type Severity Reaction Status Date / Time No Known Allergies Allergy Verified 04/02/21 13:02 Review of Systems ROS Statement: Those systems with pertinent positive or pertinent negative responses have been documented in the HPI. ROS Other: All systems not noted in ROS Statement are negative. Past Medical History Past Medical History: Asthma, Hypertension, Myocardial Infarction ([place]) Last Myocardial Infarction Date:: 2015 History of Any Multi-Drug Resistant Organisms: None Reported Past Surgical History: Back Surgery, Heart Catheterization With Stent, Tubal Ligation Additional Past Surgical History / Comment(s): STENT TO LAD Past Anesthesia/Blood Transfusion Reactions: No Reported Reaction Date of Last Stent Placement:: Past Psychological History: No Psychological Hx Reported Smoking Status: Current every day smoker Past Alcohol Use History: None Reported Past Drug Use History: None Reported - Past Family History Mother Family Medical History: Hypertension Father Family Medical History: Diabetes Mellitus, Hypertension General Exam Limitations: no limitations General appearance: alert, in no apparent distress Head exam: Present: atraumatic Eye exam: Present: normal appearance, PERRL, EOMI. Absent: scleral icterus, conjunctival injection ENT exam: Present: normal exam, mucous membranes moist Neck exam: Present: normal inspection, full ROM. Absent: tenderness Respiratory exam: Present: normal lung sounds bilaterally. Absent: respiratory distress, wheezes Cardiovascular Exam: Present: regular rate, normal rhythm, normal heart sounds Extremities exam: Present: other (Patient has erythema and minimal edema noted to the bilateral palms as well as the right dorsal MCP joints. No pain with movement of the hands. Capillary refill less than 2 seconds. No skin lesions.) Course Vital Signs 04/02/21 13:03 Temperature 98.1 F Pulse Rate 119 H Respiratory 18 Rate Blood Pressure 119/74 O2 Sat by Pulse 100 Oximetry Medical Decision Making - Medical Decision Making Case discussed with Dr. Andrews. Likely histamine release. We will try steroids and Atarax. Patient will watch her blood sugar closely and if she is having a high blood sugar she will discontinue the steroid. She will follow-up with her doctor. She will return here for any worsening symptoms. Disposition Clinical Impression: Pruritus of both hands Disposition: HOME SELF-CARE Condition: Good Instructions (If sedation given, give patient instructions): Urticaria (ED) Additional Instructions: Take medications as directed. Follow-up with your doctor in one to 2 days. Return to the emergency room for any worsening symptoms. Prescriptions: hydrOXYzine HCL [Atarax] 25 mg PO TID PRN #20 tab PRN Reason: Itching predniSONE 50 mg PO DAILY #5 tablet Is patient prescribed a controlled substance at d/c from ED?: No Referrals: Reed Champagne MD [Primary Care Provider] - 1-2 days Time of Disposition: 14:12
[2021-04-02 14:48] VITALS: BP 120/76; PULSE 99; TEMP 98
== END 2021-04-02 14:46 | disposition home or self-care (01) ==
LOC: EC 13:01
DX: L29.8 Other pruritus (principal); J45.909 Unspecified asthma, uncomplicated; I10 Essential (primary) hypertension; I25.2 Old myocardial infarction; F17.200 Nicotine dependence, unspecified, uncomplicated; Z79.82 Long term (current) use of aspirin; Z98.51 Tubal ligation status
CPT/HCPCS: 99283; 96372; J1885

== ENCOUNTER 2022-03-04 23:57 | Emergency (ER) | payer BC ==
[2022-03-05] MEDS ORDERED: methylPREDNISolone SOD SUCCI 125 MG/2 ML VIAL IV STA (00:40)
[2022-03-05] MEDS ORDERED: IPRATROPIUM-ALBUTEROL 3 ML NEB INHALATION STA (00:40)
[2022-03-05 01:08] LABS: Basophils # (A) 0.1 k/uL (0-0.2); Basophils % (A) 1 %; Eosinophils # (A) 0.4 k/uL (0-0.7); Eosinophils % (A) 3 %; HCT 50.6 % (34.0-46.0); Lymphocytes # (A) 2.2 k/uL (1.0-4.8); Lymphocytes % (A) 20 %; MCH 29.1 pg (25.0-35.0); MCHC 33.5 g/dL (31.0-37.0); MCV 86.8 fL (80.0-100.0); Mean Platelet Volume 7.4; Monocytes # (A) 0.5 k/uL (0-1.0); Monocytes % (A) 5 %; Neutrophils # (A) 7.6 k/uL (1.3-7.7); Neutrophils % (A) 70 %; Platelet Count 305 k/uL (150-450); RBC 5.83 m/uL (3.80-5.40); RDW 12.9 % (11.5-15.5); WBC 10.9 k/uL (3.8-10.6)
--- NOTE | 2022-03-05 01:14 | ED ---
SOB HPI - General Chief Complaint: Shortness of Breath Stated Complaint: Congestion, Shortness of breath Time Seen by Provider: 03/05/22 00:32 Source: patient Mode of arrival: ambulatory - History of Present Illness Initial Comments: Patient is a 51-year-old female presenting with chief complaint of difficulty breathing. Patient states that she has been sick with a cold since November. Patient has been experiencing cough, nasal congestion, chest congestion and wheezing. She has been on 2 courses of antibiotics. She uses her nebulizer and inhaler daily. She denies chest pain. She denies abdominal pain, nausea, vomiting. No headache, vision or hearing changes, fever, chills, neck pain or stiffness. - Related Data Home Medications Medication Instructions Recorded Confirmed Metoprolol Tartrate [Lopressor] 50 mg PO BID 03/05/16 02/03/17 Previous Rx's Medication Instructions Recorded Aspirin 325 mg PO DAILY tab 12/03/15 Albuterol Inhaler [Ventolin Hfa 1 - 2 puff INHALATION Q4HR PRN #1 02/03/17 Inhaler] inhaler Azithromycin [Zithromax Z-pack] 0 mg PO DIRECTED #6 tab 02/03/17 predniSONE 50 mg PO DAILY #5 tab 02/03/17 Azithromycin [Zithromax Z-pack (6 250 mg PO DIRECTED #6 tab 11/23/18 tabs)] Cephalexin [Keflex] 500 mg PO Q12HR 14 Days #28 cap 09/14/19 Phenazopyridine HCl [Pyridium] 100 mg PO TID 1 Days #3 tab 09/14/19 hydrOXYzine HCL [Atarax] 25 mg PO TID PRN #20 tab 04/02/21 predniSONE 50 mg PO DAILY #5 tablet 04/02/21 Cephalexin [Keflex] 500 mg PO Q12HR 7 Days #14 cap 03/05/22 methylPREDNISolone Dose Pack 4 mg PO DIRECTED #1 packet 03/05/22 [Medrol Dose Pack] EPINEPHrine (Auto Inject) [Epipen] 0.3 mg IM ONCE PRN 1 Days #1 each 03/08/22 Famotidine 40 mg PO DAILY 7 Days #7 tablet 03/08/22 diphenhydrAMINE HCL [Benadryl 25 mg PO TID PRN 7 Days #21 tab 03/08/22 Allergy] predniSONE [Deltasone] 40 mg PO DAILY 5 Days #10 tab 03/08/22 Allergies Allergy/AdvReac Type Severity Reaction Status Date / Time No Known Allergies Allergy Verified 03/08/22 15:25 Review of Systems ROS Statement: Those systems with pertinent positive or pertinent negative responses have been documented in the HPI. ROS Other: All systems not noted in ROS Statement are negative. Past Medical History Past Medical History: Asthma, Hypertension, Myocardial Infarction ([place]) Last Myocardial Infarction Date:: 2015 History of Any Multi-Drug Resistant Organisms: None Reported Past Surgical History: Back Surgery, Heart Catheterization With Stent, Tubal Ligation Additional Past Surgical History / Comment(s): STENT TO LAD Past Anesthesia/Blood Transfusion Reactions: No Reported Reaction Date of Last Stent Placement:: Past Psychological History: No Psychological Hx Reported Smoking Status: Current every day smoker Past Alcohol Use History: None Reported Past Drug Use History: None Reported - Past Family History Mother Family Medical History: Hypertension Father Family Medical History: Diabetes Mellitus, Hypertension General Exam Limitations: no limitations General appearance: alert, in no apparent distress Head exam: Present: atraumatic, normocephalic, normal inspection Eye exam: Present: normal appearance Neck exam: Present: normal inspection, full ROM Respiratory exam: Present: wheezes. Absent: respiratory distress Cardiovascular Exam: Present: normal rhythm, tachycardia, normal heart sounds. Absent: systolic murmur, diastolic murmur, rubs, gallop, clicks Neurological exam: Present: alert, oriented X3, CN II-XII intact Psychiatric exam: Present: normal affect, normal mood Skin exam: Present: warm, dry, intact, normal color. Absent: rash Course Vital Signs 03/05/22 03/05/22 03/05/22 00:12 00:31 01:14 Temperature 98.6 F Pulse Rate 121 H 110 H 119 H Respiratory 18 18 Rate Blood Pressure 150/89 149/89 O2 Sat by Pulse 95 95 Oximetry 03/05/22 03/05/22 03/05/22 01:29 03:33 03:51 Temperature 98.4 F Pulse Rate 117 H 98 102 H Respiratory 16 16 Rate Blood Pressure 138/79 O2 Sat by Pulse 95 95 Oximetry Medical Decision Making - Medical Decision Making Was pt. sent in by a medical professional or institution (, PA, SHIPPING ORDER CLERK, urgent care, hospital, or skilled nursing...) When possible be specific @ -[No] Did you speak to anyone other than the patient for history (EMS, parent, family, police, friend...)? What history was obtained from this source @ -Partner Did you review nursing and triage notes (agree or disagree)? Why? @ -[I reviewed and agree with nursing and triage notes] Were old charts reviewed (outside hosp., previous admission, EMS record, old EKG, old radiological studies, urgent care reports/EKG's, skilled nursing records)? Report findings @ -[No old charts were reviewed] Differential Diagnosis (chest pain, altered mental status, abdominal pain women, abdominal pain men, vaginal bleeding, weakness, fever, dyspnea, syncope, headache, dizziness, GI bleed, back pain, seizure, CVA, palpatations, mental health)? @ -MDM Differential Dyspnea: Coronary syndrome, arrhythmia, tamponade, asthma, COPD, pulmonary embolism, pneumonia, pneumothorax, pulmonary effusion, anaphylaxis, diabetic ketoacidosis, flailed chest, pulmonary contusion, diaphragmatic rupture, anemia, neuromuscular this is not meant to be an all-inclusive list. EKG interpreted by me (3pts min.). @ -Sinus tachycardia ventricular rate 113. NM interval 140. QRS 96. QTC 314. QTC 430. X-rays interpreted by me (1pt min.). @ -Yes, no active cardiopulmonary disease CT interpreted by me (1pt min.). @ -CT not interpreted by myself, radiologist report reviewed. No evidence of pulmonary embolism or suspicious pulmonary mass U/S interpreted by me (1pt. min.). @ -[None done] What testing was considered but not performed or refused? (CT, X-rays, U/S, labs)? Why? @ -[None] What meds were considered but not given or refused? Why? @ -[None] Did you discuss the management of the patient with other professionals (kenyatta butler i.e. , PA, SHIPPING ORDER CLERK, lab, RT, psych nurse, adoption social worker, beekeeper, teacher, parking regulation enforcement officer, cyanide case hardener)? Give summary @ -[No] Was smoking cessation discussed for >3mins.? @ -[No] Was critical care preformed (if so, how long)? @ -[No] Were there social determinants of health that impacted care today? How? (Homelessness, low income, unemployed, alcoholism, drug addiction, transpor tation, low edu. Level, literacy, decrease access to med. care, long term, rehab)? @ -[No] Was there de-escalation of care discussed even if they declined (Discuss DNR or withdrawal of care, Hospice)? DNR status @ -[No] What co-morbidities impacted this encounter? (DM, HTN, Smoking, COPD, CAD, Cancer, CVA, ARF, Chemo, Hep., AIDS, mental health diagnosis, sleep apnea, morbid obesity)? @ -Asthma, hypertension Was patient admitted / discharged? Hospital course, mention meds given and route , prescriptions, significant lab abnormalities, going to OR and other pertinent info. @ -Patient is a 51-year-old female presenting with chief complaint of cough and shortness of breath. Symptoms have been ongoing since November. On evaluation patient is wheezing and coughing. Laboratory shows WBC 10.9, patient has been on steroids previously. Electrolytes are WNL. Troponin is less than 0.012. BNP is 24. EKG shows sinus tachycardia. Lactic acid is 2.2, likely from dehydration, patient is also hemoconcentrated. D-dimer is 1.50. CTA shows no evidence of pulmonary embolism. Patient is offered admission for asthma exacerbation, she is declining at this time. She states that she has been feeling like this for months and does not want to stay in the hospital. Patient feels comfortable with discharge home at this time. She is of sound mind and body and able to make her own decisions. Follow-up with PCP. Report back to ER with any new or worsening symptoms. Discussed return parameters and answered all questions. Patient conveyed verbal understanding and agreed to the plan. I discussed this case in detail with my attending Dr. Gonzales Undiagnosed new problem with uncertain prognosis? @ -[No] Drug Therapy requiring intensive monitoring for toxicity (Heparin, Nitro, Insulin, Cardizem)? @ -[No] Were any procedures done? @ -[No] Diagnosis/symptom? @ -Asthma exacerbation with URI Acute, or Chronic, or Acute on Chronic? @ -Acute Uncomplicated (without systemic symptoms) or Complicated (systemic symptoms)? @ -Complicated Side effects of treatment? @ -[No] Exacerbation, Progression, or Severe Exacerbation? @ -[No] Poses a threat to life or bodily function? How? (Chest pain, [place], [place], pneumonia, PE, COPD, DKA, ARF, appy, cholecystitis, CVA, Diverticulitis, Homicidal, Suicidal, threat to staff... and all critical care pts) @ -May pose a threat, prognosis is guarded, patient was offered admission, patient refused admission - Lab Data Result diagrams: 03/05/22 00:57 03/05/22 00:57 Lab Results 03/05/22 03/05/22 03/05/22 Range/Units 00:47 00:57 00:57 WBC 10.9 H (3.8-10.6) k/uL RBC 5.83 H (3.80-5.40) m/uL Hgb 17.0 H (11.4-16.0) gm/dL Hct 50.6 H (34.0-46.0) % MCV 86.8 (80.0-100.0) fL MCH 29.1 (25.0-35.0) pg MCHC 33.5 (31.0-37.0) g/dL RDW 12.9 (11.5-15.5) % Plt Count 305 (150-450) k/uL MPV 7.4 Neutrophils % 70 % Lymphocytes % 20 % Monocytes % 5 % Eosinophils % 3 % Basophils % 1 % Neutrophils # 7.6 (1.3-7.7) k/uL Lymphocytes # 2.2 (1.0-4.8) k/uL Monocytes # 0.5 (0-1.0) k/uL Eosinophils # 0.4 (0-0.7) k/uL Basophils # 0.1 (0-0.2) k/uL PT 10.6 (9.0-12.0) sec INR 1.0 (<1.2) APTT 22.6 (22.0-30.0) sec D-Dimer (<0.60) mg/L FEU Sodium (137-145) mmol/L Potassium (3.5-5.1) mmol/L Chloride (98-107) mmol/L Carbon Dioxide (22-30) mmol/L Anion Gap mmol/L BUN (7-17) mg/dL Creatinine (0.52-1.04) mg/dL Est GFR (CKD-EPI)AfAm (>60 ml/min/1.73 sqM) Est GFR (CKD-EPI)NonAf (>60 ml/min/1.73 sqM) Glucose (74-99) mg/dL Lactic Ac Sepsis Rflx Plasma Lactic Acid Rene (0.7-2.0) mmol/L Calcium (8.4-10.2) mg/dL Magnesium (1.6-2.3) mg/dL Total Bilirubin (0.2-1.3) mg/dL AST (14-36) U/L ALT (4-34) U/L Alkaline Phosphatase (38-126) U/L Troponin I (0.000-0.034) ng/mL NT-Pro-B Natriuret Pep pg/mL Total Protein (6.3-8.2) g/dL Albumin (3.5-5.0) g/dL Urine Color Urine Appearance (Clear) Urine pH (5.0-8.0) Ur Specific [place] (1.001-1.035) Urine Protein (Negative) Urine Glucose (UA) (Negative) Urine Ketones (Negative) Urine Blood (Negative) Urine Nitrite (Negative) Urine Bilirubin (Negative) Urine Urobilinogen (<2.0) mg/dL Ur Leukocyte Esterase (Negative) Urine RBC (0-5) /hpf Urine WBC (0-5) /hpf Ur Squamous Epith Cells (0-4) /hpf Urine Bacteria (None) /hpf Urine Mucus (None) /hpf Influenza Type A (PCR) Not Detected (Not Detectd) Influenza Type B (PCR) Not Detected (Not Detectd) RSV (PCR) Not Detected (Not Detectd) SARS-CoV-2 (PCR) Not Detected (Not Detectd) 03/05/22 03/05/22 03/05/22 Range/Units 00:57 00:57 00:57 WBC (3.8-10.6) k/uL RBC (3.80-5.40) m/uL Hgb (11.4-16.0) gm/dL Hct (34.0-46.0) % MCV (80.0-100.0) fL MCH (25.0-35.0) pg MCHC (31.0-37.0) g/dL RDW (11.5-15.5) % Plt Count (150-450) k/uL MPV Neutrophils % % Lymphocytes % % Monocytes % % Eosinophils % % Basophils % % Neutrophils # (1.3-7.7) k/uL Lymphocytes # (1.0-4.8) k/uL Monocytes # (0-1.0) k/uL Eosinophils # (0-0.7) k/uL Basophils # (0-0.2) k/uL PT (9.0-12.0) sec INR (<1.2) APTT (22.0-30.0) sec D-Dimer (<0.60) mg/L FEU Sodium 138 (137-145) mmol/L Potassium 4.1 (3.5-5.1) mmol/L Chloride 105 (98-107) mmol/L Carbon Dioxide 23 (22-30) mmol/L Anion Gap 10 mmol/L BUN 15 (7-17) mg/dL Creatinine 0.52 (0.52-1.04) mg/dL Est GFR (CKD-EPI)AfAm >90 (>60 ml/min/1.73 sqM) Est GFR (CKD-EPI)NonAf >90 (>60 ml/min/1.73 sqM) Glucose 234 H (74-99) mg/dL Lactic Ac Sepsis Rflx Plasma Lactic Acid Rene 2.2 H* (0.7-2.0) mmol/L Calcium 8.9 (8.4-10.2) mg/dL Magnesium 1.6 (1.6-2.3) mg/dL Total Bilirubin 0.5 (0.2-1.3) mg/dL AST 30 (14-36) U/L ALT 37 H (4-34) U/L Alkaline Phosphatase 115 (38-126) U/L Troponin I <0.012 (0.000-0.034) ng/mL NT-Pro-B Natriuret Pep pg/mL Total Protein 6.9 (6.3-8.2) g/dL Albumin 4.0 (3.5-5.0) g/dL Urine Color Urine Appearance (Clear) Urine pH (5.0-8.0) Ur Specific [place] (1.001-1.035) Urine Protein (Negative) Urine Glucose (UA) (Negative) Urine Ketones (Negative) Urine Blood (Negative) Urine Nitrite (Negative) Urine Bilirubin (Negative) Urine Urobilinogen (<2.0) mg/dL Ur Leukocyte Esterase (Negative) Urine RBC (0-5) /hpf Urine WBC (0-5) /hpf Ur Squamous Epith Cells (0-4) /hpf Urine Bacteria (None) /hpf Urine Mucus (None) /hpf Influenza Type A (PCR) (Not Detectd) Influenza Type B (PCR) (Not Detectd) RSV (PCR) (Not Detectd) SARS-CoV-2 (PCR) (Not Detectd) 03/05/22 03/05/22 03/05/22 Range/Units 00:57 00:57 00:57 WBC (3.8-10.6) k/uL RBC (3.80-5.40) m/uL Hgb (11.4-16.0) gm/dL Hct (34.0-46.0) % MCV (80.0-100.0) fL MCH (25.0-35.0) pg MCHC (31.0-37.0) g/dL RDW (11.5-15.5) % Plt Count (150-450) k/uL MPV Neutrophils % % Lymphocytes % % Monocytes % % Eosinophils % % Basophils % % Neutrophils # (1.3-7.7) k/uL Lymphocytes # (1.0-4.8) k/uL Monocytes # (0-1.0) k/uL Eosinophils # (0-0.7) k/uL Basophils # (0-0.2) k/uL PT (9.0-12.0) sec INR (<1.2) APTT (22.0-30.0) sec D-Dimer 1.50 H (<0.60) mg/L FEU Sodium (137-145) mmol/L Potassium (3.5-5.1) mmol/L Chloride (98-107) mmol/L Carbon Dioxide (22-30) mmol/L Anion Gap mmol/L BUN (7-17) mg/dL Creatinine (0.52-1.04) mg/dL Est GFR (CKD-EPI)AfAm (>60 ml/min/1.73 sqM) Est GFR (CKD-EPI)NonAf (>60 ml/min/1.73 sqM) Glucose (74-99) mg/dL Lactic Ac Sepsis Rflx Plasma Lactic Acid Rene (0.7-2.0) mmol/L Calcium (8.4-10.2) mg/dL Magnesium (1.6-2.3) mg/dL Total Bilirubin (0.2-1.3) mg/dL AST (14-36) U/L ALT (4-34) U/L Alkaline Phosphatase (38-126) U/L Troponin I (0.000-0.034) ng/mL NT-Pro-B Natriuret Pep 24 pg/mL Total Protein (6.3-8.2) g/dL Albumin (3.5-5.0) g/dL Urine Color Yellow Urine Appearance Cloudy H (Clear) Urine pH 5.5 (5.0-8.0) Ur Specific [place] 1.036 H (1.001-1.035) Urine Protein 2+ H (Negative) Urine Glucose (UA) Trace H (Negative) Urine Ketones Negative (Negative) Urine Blood Trace H (Negative) Urine Nitrite Positive H (Negative) Urine Bilirubin Negative (Negative) Urine Urobilinogen 2.0 (<2.0) mg/dL Ur Leukocyte Esterase Trace H (Negative) Urine RBC 2 (0-5) /hpf Urine WBC 3 (0-5) /hpf Ur Squamous Epith Cells 6 H (0-4) /hpf Urine Bacteria Occasional H (None) /hpf Urine Mucus Occasional H (None) /hpf Influenza Type A (PCR) (Not Detectd) Influenza Type B (PCR) (Not Detectd) RSV (PCR) (Not Detectd) SARS-CoV-2 (PCR) (Not Detectd) 03/05/22 Range/Units 01:59 WBC (3.8-10.6) k/uL RBC (3.80-5.40) m/uL Hgb (11.4-16.0) gm/dL Hct (34.0-46.0) % MCV (80.0-100.0) fL MCH (25.0-35.0) pg MCHC (31.0-37.0) g/dL RDW (11.5-15.5) % Plt Count (150-450) k/uL MPV Neutrophils % % Lymphocytes % % Monocytes % % Eosinophils % % Basophils % % Neutrophils # (1.3-7.7) k/uL Lymphocytes # (1.0-4.8) k/uL Monocytes # (0-1.0) k/uL Eosinophils # (0-0.7) k/uL Basophils # (0-0.2) k/uL PT (9.0-12.0) sec INR (<1.2) APTT (22.0-30.0) sec D-Dimer (<0.60) mg/L FEU Sodium (137-145) mmol/L Potassium (3.5-5.1) mmol/L Chloride (98-107) mmol/L Carbon Dioxide (22-30) mmol/L Anion Gap mmol/L BUN (7-17) mg/dL Creatinine (0.52-1.04) mg/dL Est GFR (CKD-EPI)AfAm (>60 ml/min/1.73 sqM) Est GFR (CKD-EPI)NonAf (>60 ml/min/1.73 sqM) Glucose (74-99) mg/dL Lactic Ac Sepsis Rflx Y Plasma Lactic Acid Rene (0.7-2.0) mmol/L Calcium (8.4-10.2) mg/dL Magnesium (1.6-2.3) mg/dL Total Bilirubin (0.2-1.3) mg/dL AST (14-36) U/L ALT (4-34) U/L Alkaline Phosphatase (38-126) U/L Troponin I (0.000-0.034) ng/mL NT-Pro-B Natriuret Pep pg/mL Total Protein (6.3-8.2) g/dL Albumin (3.5-5.0) g/dL Urine Color Urine Appearance (Clear) Urine pH (5.0-8.0) Ur Specific [place] (1.001-1.035) Urine Protein (Negative) Urine Glucose (UA) (Negative) Urine Ketones (Negative) Urine Blood (Negative) Urine Nitrite (Negative) Urine Bilirubin (Negative) Urine Urobilinogen (<2.0) mg/dL Ur Leukocyte Esterase (Negative) Urine RBC (0-5) /hpf Urine WBC (0-5) /hpf Ur Squamous Epith Cells (0-4) /hpf Urine Bacteria (None) /hpf Urine Mucus (None) /hpf Influenza Type A (PCR) (Not Detectd) Influenza Type B (PCR) (Not Detectd) RSV (PCR) (Not Detectd) SARS-CoV-2 (PCR) (Not Detectd) Disposition Clinical Impression: Asthma, URI (upper respiratory infection), UTI (urinary tract infection) Disposition: HOME SELF-CARE Condition: Fair Instructions (If sedation given, give patient instructions): Asthma (ED), Urinary Tract Infection in Women (ED), Upper Respiratory Infection (ED) Additional Instructions: Follow-up with PCP. Report back to ER with any new or worsening symptoms. Take medication as prescribed. Prescriptions: Cephalexin [Keflex] 500 mg PO Q12HR 7 Days #14 cap methylPREDNISolone Dose Pack [Medrol Dose Pack] 4 mg PO DIRECTED #1 packet Is patient prescribed a controlled substance at d/c from ED?: No Referrals: Reed Champagne MD [Primary Care Provider] - 1-2 days Time of Disposition: 03:53
--- NOTE | 2022-03-05 01:17 | XR ---
EXAMINATION TYPE: XR chest 2V DATE OF EXAM: 03/05/2022 COMPARISON: 02/03/2017 HISTORY: Difficulty breathing TECHNIQUE: FINDINGS: Heart is normal. Lungs are clear of infiltrate. No heart failure. There are no hilar masses . Bony thorax is intact. There is right shoulder surgery. IMPRESSION: No active cardiopulmonary disease. No change.
[2022-03-05 01:20] LABS: Chloride 105 mmol/L (98-107)
[2022-03-05 01:21] LABS: Partial Thromboplastin Time 22.6 sec (22.0-30.0); Prothrombin Time 10.6 sec (9.0-12.0)
[2022-03-05 01:22] LABS: ALT 37 U/L (4-34); AST 30 U/L (14-36); African American GFR (CKD) >90 (>60 ml/min/1.73 sqM); Alkaline Phosphatase 115 U/L (38-126); Anion Gap 10 mmol/L; Blood Urea Nitrogen 15 mg/dL (7-17); Calcium 8.9 mg/dL (8.4-10.2); Carbon Dioxide 23 mmol/L (22-30); Glucose 234 mg/dL (74-99); Magnesium 1.6 mg/dL (1.6-2.3); Non-African American GFR(CKD) >90 (>60 ml/min/1.73 sqM); Potassium 4.1 mmol/L (3.5-5.1); Sodium 138 mmol/L (137-145); Total Bilirubin 0.5 mg/dL (0.2-1.3); Total Protein 6.9 g/dL (6.3-8.2)
[2022-03-05 02:53] LABS: Appearance,Urine Cloudy (Clear); Bacteria,Urine Occasional /hpf; Bilirubin,Urine Negative (Negative); Blood,Urine Trace (Negative); Color,Urine Yellow; Glucose,Urine (UA) Trace (Negative); Ketones,Urine Negative (Negative); Leukocyte Esterase,Urine Trace (Negative); Mucus,Urine Occasional /hpf; Nitrite,Urine Positive (Negative); PH, Urine 5.5 (5.0-8.0); Protein,Urine 2+ (Negative); RBC,Urine 2 /hpf (0-5); Specific Gravity,Urine 1.036 (1.001-1.035); Squamous Epithelial Cell,Urine 6 /hpf (0-4); WBC,Urine 3 /hpf (0-5)
--- NOTE | 2022-03-05 03:27 | CT ---
EXAMINATION TYPE: CT chest angio for PE DATE OF EXAM: 03/05/2022 COMPARISON: None HISTORY: Shortness of breath elevated dimer CT DLP: 809.7 mGycm Automated exposure control for dose reduction was used. CONTRAST: Performed with IV Contrast, patient injected with 100ml mL of Isovue 370. Images obtained from the thoracic inlet to the diaphragm with the IV contrast. There are Three-D postprocessed images. The lungs are clear of consolidation. No pleural effusion. Heart size is normal. No pericardial effus ion. There is no mediastinal adenopathy. There are no hilar masses. There is no evidence of filling defect in the pulmonary arteries. Thoracic aorta is intact. No aneurysm or dissection. The upper abdominal soft tissues are intact. The thoracic spine is intact. No compression fracture. S ternum is intact. IMPRESSION: No evidence of pulmonary embolism. No suspicious pulmonary mass.
[2022-03-05 03:33] VITALS: BP 138/79; RESP 16
[2022-03-05 03:50] VITALS: TEMP 98.4
[2022-03-05 03:53] VITALS: PULSE 102
== END 2022-03-05 04:05 | disposition home or self-care (01) ==
LOC: EC 23:57
DX: J45.909 Unspecified asthma, uncomplicated (principal); J06.9 Acute upper respiratory infection, unspecified; N39.0 Urinary tract infection, site not specified; I10 Essential (primary) hypertension; F17.200 Nicotine dependence, unspecified, uncomplicated; Z20.822 Contact with and (suspected) exposure to COVID-19; Z79.899 Other long term (current) drug therapy; Z98.51 Tubal ligation status; Z98.61 Coronary angioplasty status
CPT/HCPCS: 36415; 94640; 93005; 85379; 83880; 80053; 83605; 83735; 84484; 85025; 85610; 85730; 81001; 87636; 71046; 71275; 99285; 96374; J2930; Q9967

== ENCOUNTER 2022-03-08 15:05 | Emergency (ER) | payer BC ==
[2022-03-08 15:25] VITALS: RESP 18; TEMP 98
[2022-03-08] MEDS ORDERED: diphenhydrAMINE 25 MG CAP PO STA (16:19)
[2022-03-08] MEDS ORDERED: FAMOTIDINE 20 MG TAB PO STA (16:19)
[2022-03-08] MEDS ORDERED: methylPREDNISolone SOD SUCCI 125 MG/2 ML VIAL IM ONE (16:19)
--- NOTE | 2022-03-08 16:23 | ED ---
General Adult HPI - General Chief complaint: Allergic Reaction Stated complaint: revisit - URI, new rash everywhere Time Seen by Provider: 03/08/22 16:05 Source: patient, RN notes reviewed, old records reviewed Mode of arrival: ambulatory Limitations: no limitations - History of Present Illness Initial comments: Patient is a 51-year-old female with past medical history remarkable for asthma, hypertension, prior [place] with stents who presents emergency Department complaining ALLERGIC reaction. Was seen earlier this week and given prescriptions for an a ntibiotic, steroid over concern for mild asthma exacerbation as well as upper respiratory infection. States over the last 1-2 days she has noticed urticarial rash located over her extremities, face. States it is itchy. Has been taking Benadryl with minimal relief. Uncertain what she was having ALLERGIC reaction to. Denies any difficulty breathing. Denies any difficulty swallowing or eating. Presents for further evaluation at this time. Distal taking prednisone at home. No history of anaphylaxis or ALLERGIC reactions. - Related Data Home Medications Medication Instructions Recorded Confirmed Metoprolol Tartrate [Lopressor] 50 mg PO BID 03/05/16 02/03/17 Previous Rx's Medication Instructions Recorded Aspirin 325 mg PO DAILY tab 12/03/15 Albuterol Inhaler [Ventolin Hfa 1 - 2 puff INHALATION Q4HR PRN #1 02/03/17 Inhaler] inhaler Azithromycin [Zithromax Z-pack] 0 mg PO DIRECTED #6 tab 02/03/17 predniSONE 50 mg PO DAILY #5 tab 02/03/17 Azithromycin [Zithromax Z-pack (6 250 mg PO DIRECTED #6 tab 11/23/18 tabs)] Cephalexin [Keflex] 500 mg PO Q12HR 14 Days #28 cap 09/14/19 Phenazopyridine HCl [Pyridium] 100 mg PO TID 1 Days #3 tab 09/14/19 hydrOXYzine HCL [Atarax] 25 mg PO TID PRN #20 tab 04/02/21 predniSONE 50 mg PO DAILY #5 tablet 04/02/21 Cephalexin [Keflex] 500 mg PO Q12HR 7 Days #14 cap 03/05/22 methylPREDNISolone Dose Pack 4 mg PO DIRECTED #1 packet 03/05/22 [Medrol Dose Pack] EPINEPHrine (Auto Inject) [Epipen] 0.3 mg IM ONCE PRN 1 Days #1 each 03/08/22 Famotidine 40 mg PO DAILY 7 Days #7 tablet 03/08/22 diphenhydrAMINE HCL [Benadryl 25 mg PO TID PRN 7 Days #21 tab 03/08/22 Allergy] predniSONE [Deltasone] 40 mg PO DAILY 5 Days #10 tab 03/08/22 Allergies Allergy/AdvReac Type Severity Reaction Status Date / Time No Known Allergies Allergy Verified 03/08/22 15:25 Review of Systems ROS Statement: Those systems with pertinent positive or pertinent negative responses have been documented in the HPI. Review of Systems: CONST: Denies fever EYES: Denies blurry vision ENT: Endorses nasal congestion C/V: Denies Chest pain RESP: Denies shortness of breath GI: Denies abdominal pain : Denies dysuria SKIN: Endorses urticarial rash MSK: Denies joint pain. NEURO: Denies headache ROS Other: All systems not noted in ROS Statement are negative. Past Medical History Past Medical History: Asthma, Hypertension, Myocardial Infarction ([place]) Last Myocardial Infarction Date:: 2015 History of Any Multi-Drug Resistant Organisms: None Reported Past Surgical History: Back Surgery, Heart Catheterization With Stent, Tubal Ligation Additional Past Surgical History / Comment(s): STENT TO LAD Past Anesthesia/Blood Transfusion Reactions: No Reported Reaction Date of Last Stent Placement:: Past Psychological History: No Psychological Hx Reported Smoking Status: Current every day smoker Past Alcohol Use History: None Reported Past Drug Use History: None Reported - Past Family History Mother Family Medical History: Hypertension Father Family Medical History: Diabetes Mellitus, Hypertension General Exam - General Exam Comments Initial Comments: General: Appears in no acute distress. HEAD: Normal with no signs of head trauma. EYES: PERRLA, EOMI, conjunctiva normal, no discharge. ENT: Hearing grossly intact, normal oropharynx. No stridor. No wheezing. RESPIRATORY: Clear breath sounds bilaterally. No wheezes, rales, or rhonchi. No hypoxia. No increased work of breathing. C/V: Regular rate and rhythm. S1 and S2 auscultated, no edema, peripheral pulses 2+ and intact throughout ABD: Abd is soft, nontender, nondistended EXT: Normal range of motion, no obvious deformity SKIN: Urticaria-like rash located over the patient's face, bilateral upper extremities. NEURO: Alert and oriented 4. No focal deficits. Limitations: no limitations Course Vital Signs 03/08/22 15:21 Temperature 98.0 F Pulse Rate 103 H Respiratory 18 Rate Blood Pressure 177/104 O2 Sat by Pulse 97 Oximetry Medical Decision Making - Medical Decision Making Was pt. sent in by a medical professional or institution? @ -No Did you speak to anyone other than the patient for history? @ -No Did you review nursing and triage notes? @ -Yes. Agreed. Were old charts reviewed? @ -Yes. Previous visit. Differential Diagnosis? @ -ALLERGIC reaction, anaphylaxis, rash. This list is not all encompassing. EKG interpreted by me (3pts min.)? @ -none X-rays interpreted by me (1pt min.)? @ -none CT interpreted by me (1pt min.)? @ -none U/S interpreted by me (1pt. min.)? @ -none What testing was considered but not performed? (CT, X-rays, U/S, labs)? Why? @None What meds were considered but not given? Why? @ -none Did you discuss the management of the patient with other professionals? @ -No Did you reconcile home meds? @ -none Was smoking cessation discussed for >3mins.? @ -none Was critical care preformed (if so, how long)? @ -none Were there social determinants of health that impacted care today? How? (Homelessness, low income, unemployed, alcoholism, drug addiction, transportation, low edu. Level, literacy, decrease access to med. care, assisted, rehab)? @ -None Was there de-escalation of care discussed even if they declined? (Discuss DNR or withdrawal of care, Hospice)? @ -No What co-morbidities impacted this encounter? (DM, HTN, Smoking, COPD, CAD, Cancer, CVA, Hep., AIDS, mental health diagnosis, sleep apnea, morbid obesity)? @ -No Was patient admitted / discharged? @ -Based on the patient's presentation and physical exam, does appear she is having a pericardial rash located over her body. No signs or symptoms of anaphylaxis at this time. No stridor. No wheezing. No nausea or vomiting. Posterior oropharynx is unremarkable. Unknown what the allergen is. Denies any soaps, no new medications. Was on Keflex however she is taking it before. Presents for further evaluation at this time. We discussed that she is likely having a localized ALLERGIC reaction. May be secondary to the antibiotic which a wreck when she stopped taking. We will provide her with a dose of steroid, famotidine, Benadryl at this time. I did offer the patient an EpiPen for home which he accepted. We discussed proper use of this, and she exposed understanding. I wanted to follow up with her PCP this week. She was in agreement this plan. I answered all questions that she had. Vital signs within acceptable limits. I will provide the patient with a prescription for famotidine, Benadryl, predn isone, EpiPen. I instructed the patient to follow up with their PCP in the next 1-3 days. I explained that the patient should return to the emergency department if they experience any worsening symptoms. Strict return precautions were discussed with the patient. The patient expressed understanding of these instructions. I answered all questions that the patient had. The patient was discharged home in good condition with their prescriptions and follow up information. Undiagnosed new problem with uncertain prognosis? @ -ALLERGIC reaction, urticaria Drug Therapy requiring intensive monitoring for toxicity (Heparin, Nitro, Insulin, Cardizem)? @ -none Were any procedures done? @ -none Diagnosis/symptom? @ -ALLERGIC reaction, urticaria Acute, or Chronic, or Acute on Chronic? @ -Acute Uncomplicated (without systemic symptoms) or Complicated (systemic symptoms)? @ -Uncomplicated Side effects of treatment? @ -none Exacerbation, Progression, or Severe Exacerbation] @ -no Poses a threat to life or bodily function? @ -no Disposition Clinical Impression: Hives Disposition: HOME SELF-CARE Condition: Good Instructions (If sedation given, give patient instructions): Urticaria (ED) Prescriptions: diphenhydrAMINE HCL [Benadryl Allergy] 25 mg PO TID PRN 7 Days #21 tab PRN Reason: Rash predniSONE [Deltasone] 40 mg PO DAILY 5 Days #10 tab EPINEPHrine (Auto Inject) [Epipen] 0.3 mg IM ONCE PRN 1 Days #1 each PRN Reason: Anaphylaxis Famotidine 40 mg PO DAILY 7 Days #7 tablet Is patient prescribed a controlled substance at d/c from ED?: No Referrals: Reed Champagne MD [Primary Care Provider] - 1-2 days Time of Disposition: 16:20
[2022-03-08 16:51] VITALS: BP 167/91; PULSE 91
== END 2022-03-08 16:52 | disposition home or self-care (01) ==
LOC: EC 15:05
DX: L50.9 Urticaria, unspecified (principal); I10 Essential (primary) hypertension; I25.2 Old myocardial infarction; J45.909 Unspecified asthma, uncomplicated; F17.200 Nicotine dependence, unspecified, uncomplicated; Z79.899 Other long term (current) drug therapy
CPT/HCPCS: 99283; 96372; J2930

== ENCOUNTER → 2022-10-23 | Outpatient (CLI) | payer BC ==
--- NOTE | 2022-10-26 20:43 | MM ---
Reason for Exam: Screening (asymptomatic). Last mammogram was performed 2 year(s) and 2 month(s) ago. Patient History: Menarche at age 9. First Full-Term at age 20. Postmenopausal. Risk Values: Blossom 5 year model risk: 1.0%. NCI Lifetime model risk: 8.7%. Prior Study Comparison: 08/12/2020 Bilateral Screening Mammogram, [facility]. Tissue Density: There are scattered fibroglandular densities. Findings: Analyzed By CAD. Chronic nodularity lateral left breast. There is no suspicious group of microcalcifications or new suspicious mass in either breast. Overall Assessment: Benign, BI-RAD 2 Management: Screening Mammogram of both breasts in 1 year. . Patient should continue monthly self-breast exams. A clinical breast exam by your physician is recommended on an annual basis. This exam should not preclude additional follow-up of suspicious palpable abnormalities. Note on Blossom scores and lifetime risk: 1. A Blossom score greater than 3% is considered moderate risk. If this is the case, consider specialist referral to assess eligibility for a risk reducing agent. 2. If overall lifetime risk for the development of breast cancer is 20% or higher, the patient may qualify for future screening with alternating mammogram and breast MRI. Electronically signed and approved by: Krystle Dhillon M.D. Radiologist
== END | disposition home or self-care (01) ==
LOC: RADMAMWWP 13:26
PROVIDERS: ATTEND Family Medicine
DX: Z12.31 Encounter for screening mammogram for malignant neoplasm of breast (principal); Z78.0 Asymptomatic menopausal state
CPT/HCPCS: 77063; 77067

== ENCOUNTER → 2023-02-02 | Outpatient (CLI) | payer BC ==
--- NOTE | 2023-02-02 12:05 | XR ---
EXAMINATION TYPE: XR chest 2V DATE OF EXAM: 02/02/2023 COMPARISON: 03/05/2022 TECHNIQUE: PA and lateral views submitted. HISTORY: Cough possible pneumonia FINDINGS: The lungs are clear and there is no pneumothorax, pleural effusion, or focal pneumonia. Heart size normal and no overt failure. Osseous structures demonstrate hypertrophic and degenerative changes of the spine. AC joint arthropathy. Postsurgical change rotator cuff repair surgery in the right. IMPRESSION: 1. No acute process.
== END | disposition home or self-care (01) ==
LOC: RADXRMAIN 09:26
PROVIDERS: ATTEND Family Medicine
DX: J18.9 Pneumonia, unspecified organism (principal)
CPT/HCPCS: 71046

== ENCOUNTER 2023-04-13 02:42 | Emergency (ER) | payer BC ==
[2023-04-13] MEDS ORDERED: methylPREDNISolone SOD SUCCI 125 MG/2 ML VIAL IM ONE (03:13)
[2023-04-13] MEDS ORDERED: diphenhydrAMINE 50 MG/ML 1 ML VIAL IM STA (03:13)
[2023-04-13] MEDS ORDERED: FAMOTIDINE 20 MG TAB PO STA (03:14)
--- NOTE | 2023-04-13 03:19 | ED ---
Allergic Reaction HPI - General Chief complaint: Allergic Reaction Stated complaint: rash Source: patient Mode of arrival: ambulatory Limitations: no limitations - History of Present Illness Initial Comments: 52-year-old female presenting to the ED with a chief complaint of allergic reaction. Patient states over the past few weeks has had ongoing problems with urticaria. States that she is unsure of what the trigger is. Patient states tonight she started to experience an itchy rash to her face and her arms. Denies any dyspnea dysphagia. No facial swelling. No other complaints at this time. - Related Data Home Medications Medication Instructions Recorded Confirmed Metoprolol Tartrate [Lopressor] 50 mg PO BID 03/05/16 02/03/17 Previous Rx's Medication Instructions Recorded Aspirin 325 mg PO DAILY tab 12/03/15 Albuterol Inhaler [Ventolin Hfa 1 - 2 puff INHALATION Q4HR PRN #1 02/03/17 Inhaler] inhaler Azithromycin [Zithromax Z-pack] 0 mg PO DIRECTED #6 tab 02/03/17 predniSONE 50 mg PO DAILY #5 tab 02/03/17 Azithromycin [Zithromax Z-pack (6 250 mg PO DIRECTED #6 tab 11/23/18 tabs)] Cephalexin [Keflex] 500 mg PO Q12HR 14 Days #28 cap 09/14/19 Phenazopyridine HCl [Pyridium] 100 mg PO TID 1 Days #3 tab 09/14/19 hydrOXYzine HCL [Atarax] 25 mg PO TID PRN #20 tab 04/02/21 predniSONE 50 mg PO DAILY #5 tablet 04/02/21 Cephalexin [Keflex] 500 mg PO Q12HR 7 Days #14 cap 03/05/22 methylPREDNISolone Dose Pack 4 mg PO DIRECTED #1 packet 03/05/22 [Medrol Dose Pack] EPINEPHrine (Auto Inject) [Epipen] 0.3 mg IM ONCE PRN 1 Days #1 each 03/08/22 Famotidine 40 mg PO DAILY 7 Days #7 tablet 03/08/22 diphenhydrAMINE HCL [Benadryl 25 mg PO TID PRN 7 Days #21 tab 03/08/22 Allergy] predniSONE [Deltasone] 40 mg PO DAILY 5 Days #10 tab 03/08/22 diphenhydrAMINE [Benadryl] 50 mg PO Q6H PRN #20 capsule 04/13/23 Allergies Allergy/AdvReac Type Severity Reaction Status Date / Time No Known Allergies Allergy Verified 04/13/23 02:58 Review of Systems ROS Statement: Those systems with pertinent positive or pertinent negative responses have been documented in the HPI. ROS Other: All systems not noted in ROS Statement are negative. Past Medical History Past Medical History: Asthma, Hypertension, Myocardial Infarction ([place]) Last Myocardial Infarction Date:: 2015 History of Any Multi-Drug Resistant Organisms: None Reported Past Surgical History: Back Surgery, Heart Catheterization With Stent, Tubal Ligation Additional Past Surgical History / Comment(s): STENT TO LAD Past Anesthesia/Blood Transfusion Reactions: No Reported Reaction Date of Last Stent Placement:: Past Psychological History: No Psychological Hx Reported Smoking Status: Current every day smoker Past Alcohol Use History: None Reported Past Drug Use History: None Reported - Past Family History Mother Family Medical History: Hypertension Father Family Medical History: Diabetes Mellitus, Hypertension General Exam Limitations: no limitations General appearance: alert, in no apparent distress Eye exam: Present: normal appearance ENT exam: Present: other (Airway patent. No stridor. No significant oropharyngeal swelling. No stridor.) Neck exam: Present: normal inspection Respiratory exam: Present: normal lung sounds bilaterally Cardiovascular Exam: Present: regular rate, normal rhythm GI/Abdominal exam: Present: soft Neurological exam: Present: alert, oriented X3 Skin exam: Present: urticaria (On the bilateral upper extremities and face) Course Vital Signs 04/13/23 02:54 Temperature 98 F Pulse Rate 81 Respiratory 18 Rate Blood Pressure 117/81 O2 Sat by Pulse 97 Oximetry Medical Decision Making - Medical Decision Making Was pt. sent in by a medical professional or institution (, PA, ROOM ATTENDANTS, urgent care, hospital, or assisted...) When possible be specific @ -No Did you speak to anyone other than the patient for history (EMS, parent, family, police, friend...)? What history was obtained from this source @ -No Did you review nursing and triage notes (agree or disagree)? Why? @ -I reviewed and agree with nursing and triage notes Were old charts reviewed (outside hosp., previous admission, EMS record, old EKG, old radiological studies, urgent care reports/EKG's, assisted records)? Report findings @ -No old charts were reviewed Differential Diagnosis (chest pain, altered mental status, abdominal pain women, abdominal pain men, vaginal bleeding, weakness, fever, dyspnea, syncope, headache, dizziness, GI bleed, back pain, seizure, CVA, palpatations, mental health, musculoskeletal)? @ -Anaphylaxis, myocardial rash, angioedema. This is not meant to be an all in clusive list. EKG interpreted by me (3pts min.). @ -As above X-rays interpreted by me (1pt min.). @ -None done CT interpreted by me (1pt min.). @ -None done U/S interpreted by me (1pt. min.). @ -None done What testing was considered but not performed or refused? (CT, X-rays, U/S, labs)? Why? @ -None What meds were considered but not given or refused? Why? @ -None Did you discuss the management of the patient with other professionals (professionals i.e. , PA, ROOM ATTENDANTS, lab, RT, psych nurse, social work specialist, utilization review coordinator, teacher, textile technical officer, director case)? Give summary @ -No Was smoking cessation discussed for >3mins.? @ -No Was critical care preformed (if so, how long)? @ -No Were there social determinants of health that impacted care today? How? (Homelessness, low income, unemployed, alcoholism, drug addiction, transportation, low edu. Level, literacy, decrease access to med. care, retirement, rehab)? @ -No Was there de-escalation of care discussed even if they declined (Discuss DNR or withdrawal of care, Hospice)? DNR status @ -No What co-morbidities impacted this encounter? (DM, HTN, Smoking, COPD, CAD, Cancer, CVA, ARF, Chemo, Hep., AIDS, mental health diagnosis, sleep apnea, morbid obesity)? @ -None Was patient admitted / discharged? Hospital course, mention meds given and route, prescriptions, significant lab abnormalities, going to OR and other pertinent info. @ -Discharge 52-year-old female presenting to the ED with a chief complaint of allergic reaction. Patient states that tonight she noticed rash on her face and bilateral upper arms. Patient notes history of this for the past few weeks and it has been intermittent in nature. On exam there is no significant oropharyngeal swelling and patient shows no evidence of dyspnea. Rash does not appear urticarial in nature. Provided Solu-Medrol, Benadryl, famotidine in the ED and provided prescription for Benadryl. Advised to follow-up with her PCP. Advised monitoring for possible triggers. Discharged home in stable condition. Discussed return precautions with patient and family who verbalized agreement. Undiagnosed new problem with uncertain prognosis? @ -No Drug Therapy requiring intensive monitoring for toxicity (Heparin, Nitro, Insulin, Cardizem)? @ -No Were any procedures done? @ -No Diagnosis/symptom? @ -Urticaria Acute, or Chronic, or Acute on Chronic? @ -Acute Uncomplicated (without systemic symptoms) or Complicated (systemic symptoms)? @ -Uncomplicated Side effects of treatment? @ -No Exacerbation, Progression, or Severe Exacerbation? @ -No Poses a threat to life or bodily function? How? (Chest pain, [place], DC, pneumonia, PE, COPD, DKA, ARF, appy, cholecystitis, CVA, Diverticulitis, Homicidal, Suicidal, threat to staff... and all critical care pts) @ -No Disposition Clinical Impression: Urticaria Disposition: HOME SELF-CARE Condition: Good Instructions (If sedation given, give patient instructions): Urticaria (ED) Additional Instructions: Please return to the Emergency Department if symptoms worsen or any other concerns. Please follow-up with your primary care provider Prescriptions: diphenhydrAMINE [Benadryl] 50 mg PO Q6H PRN #20 capsule PRN Reason: Allergy Symptoms Is patient prescribed a controlled substance at d/c from ED?: No Referrals: Matt Desai MD [Primary Care Provider] - 1-2 days Time of Disposition: 03:28
[2023-04-13 03:24] VITALS: PULSE 81; RESP 18
[2023-04-13 03:49] VITALS: BP 129/87; TEMP 98.1
== END 2023-04-13 03:40 | disposition home or self-care (01) ==
LOC: EC 02:42
DX: L50.9 Urticaria, unspecified (principal); I10 Essential (primary) hypertension; J45.909 Unspecified asthma, uncomplicated; I25.2 Old myocardial infarction; F17.200 Nicotine dependence, unspecified, uncomplicated; Z79.899 Other long term (current) drug therapy
CPT/HCPCS: 99283; 96372 ×2; J1200; J2930

== ENCOUNTER → 2023-06-14 | Outpatient (CLI) | payer BC ==
--- NOTE | 2023-06-14 08:41 | CTL ---
EXAMINATION TYPE: CT Low Dose Lung DATE OF EXAM ORDERED: 06/14/2023 HISTORY: . Lung cancer screening CT DLP: 140.[address] CTDI: 4.0 mGy Automated exposure control for dose reduction was used. SCREENING VISIT: COMPARISON: 03/05/2022 TECHNIQUE: Low dose computed tomography scan was performed through the chest at 1 mm thick sections a nd reconstructed images in multiple planes at 1 mm and [address] DIAGNOSTIC QUALITY: Satisfactory FINDINGS: A mild underlying emphysematous changes. No consolidative pneumonia. No pleural effusion or pneumotho rax. No pleural calcifications. Heart size is normal. There is mild atherosclerotic change of the aorta and dense atherosclerotic rosa nge of the coronary arteries. Aorta measures a maximal dimension of 3.6 cm. No pathologic adenopathy noted by noncontrast technique. A borderline right hilar adenopathy measurin g short axis of 8 mm. No suspicious pulmonary nodules or masses. Multilevel hypertrophic and degenerative changes of the spine. Thickening of the left adrenal gland i s nonspecific. Benign adenoma or hyperplasia most likely etiology. IMPRESSION: 1. COPD with no suspicious pulmonary nodules. 2. Dense coronary artery calcifications. CT LUNG RAD AND CT CHEST RECOMMENDATION: Lung-Rad 2 Benign Appearance or Behavior: Continue annual sc reening with LDCT in 12 months.
== END | disposition home or self-care (01) ==
LOC: RADCTMAIN 07:06
PROVIDERS: ATTEND Internal Medicine Critical Care Medicine
DX: Z12.2 Encounter for screening for malignant neoplasm of respiratory organs (principal); I25.10 Atherosclerotic heart disease of native coronary artery without angina pectoris; J44.9 Chronic obstructive pulmonary disease, unspecified; F17.210 Nicotine dependence, cigarettes, uncomplicated
CPT/HCPCS: 71271

== ENCOUNTER → 2023-09-02 | Outpatient (CLI) | payer BC ==
--- NOTE | 2023-09-03 10:31 | XR ---
EXAMINATION TYPE: XR ankle complete RT DATE OF EXAM: 09/02/2023 3:28 PM CLINICAL INDICATION:Female, 52 years old with history of M25.571 PAIN IN RIGHT ANKLE AND JOINTS OF RI GHT FO; [facility] COMPARISON: None TECHNIQUE: XR ankle complete RT; ankle is imaged in frontal, lateral and oblique projections. FINDINGS: There is no evidence of acute osseous pathology. No evidence of subluxation or dislocation. Kager's fat pad is intact. Soft tissues are within normal limits. No radiopaque foreign bodies are identified . IMPRESSION: No evidence of acute fracture.
== END | disposition home or self-care (01) ==
LOC: RADXRMAIN 15:16
PROVIDERS: ATTEND Nurse Practitioner Family
DX: M25.571 Pain in right ankle and joints of right foot (principal)

== ENCOUNTER → 2024-06-30 | Outpatient (CLI) | payer OTHER ==
[2024-06-30 15:19] LABS: Basophils % (A) 0.9 %; Eosinophils # (A) 0.53 X 10*3/uL (0.04-0.35); Eosinophils % (A) 4.6 %; HCT 49.1 % (37.2-46.3); HGB 15.3 g/dL (12.0-15.0); Lymphocytes # (A) 3.15 X 10*3/uL (0.90-5.00); Lymphocytes % (A) 27.2 %; MCHC 31.2 g/dL (32.0-37.0); MCV 89.8 FL (80.0-97.0); Mean Platelet Volume 10.2 FL (9.5-12.2); Monocytes # (A) 0.52 X 10*3/uL (0.20-1.00); Monocytes % (A) 4.5 %; NRBC Per 100 WBC 0 X 10*3/uL (0.00-0.01); Neutrophils # (A) 7.25 X 10*3/uL (1.80-7.70); Neutrophils % (A) 62.5 %; Platelet Count 382 X 10*3/uL (140-440); RBC 5.47 X 10*6/uL (4.10-5.20); RDW 12.9 % (11.5-14.5); WBC 11.58 X 10*3/uL (4.50-10.00)
[2024-06-30 16:43] LABS: Appearance,Urine Cloudy (Clear); Bilirubin,Urine Negative (Negative); Blood,Urine Negative (Negative); Color,Urine Yellow (Yellow); Ketones,Urine Negative (Negative); Nitrite,Urine Positive (Negative); Specific Gravity,Urine 1.021 (1.001-1.030); Urobilinogen,Urine 0.2 E.U./DL
[2024-06-30 16:56] LABS: Bacteria,Urine 3+ (None Seen)
[2024-06-30 16:59] LABS: ALT 38 U/L (8-44); AST 25 U/L (13-35); Albumin 3.8 g/dL (3.8-4.9); Albumin/Globulin Ratio 1.46 Ratio (1.60-3.17); Alkaline Phosphatase 109 U/L (41-126); BUN/Creat Ratio 17.17 Ratio (12.00-20.00); Blood Urea Nitrogen 10.3 mg/dL (9.0-27.0); Calcium 8.9 mg/dL (8.7-10.3); Carbon Dioxide 21.2 mmol/L (21.6-31.8); Chloride 102 mmol/L (96-109); Globulin 2.6 g/dL (1.6-3.3); Glucose 262 mg/dL (70-110); Magnesium 1.5 mg/dL (1.5-2.4); Phosphorus 3.5 mg/dL (2.4-5.1); Potassium 4.1 mmol/L (3.5-5.5); Sodium 138 mmol/L (135-145); Total Bilirubin 0.3 mg/dL (0.3-1.2); Total Protein 6.4 g/dL (6.2-8.2)
== END | disposition home or self-care (01) ==
LOC: LABWHC1 09:12
PROVIDERS: ATTEND Internal Medicine
DX: E11.21 Type 2 diabetes mellitus with diabetic nephropathy (principal)
CPT/HCPCS: 36415; 80053; 81001; 82043; 82570; 83735; 84100; 85025

== ENCOUNTER 2024-07-10 19:34 | Outpatient (CLI) | payer OTHER ==
--- NOTE | 2024-07-12 12:27 | P.PCN ---
Date of Procedure: 07/10/24 Operative Findings: Polysomnography report Date of service is 07/10/2024 History This is a 53-year-old female patient, obese, with history of snoring, sleep fragmentation and chronic hypersomnia and sleepiness. The patient also has COPD with an FEV1 of 76% predicted and she is a chronic smoker Physical findings The patient has a weight of 268 pounds with a BMI of 47.5 Technical description The patient was studied using a standard complex polysomnography protocol that included recording of the Lead II EKG, Central, occipital and frontal EEG, right and left outer canthus EOG, submental EMG, right and left anterior tibialis EMG, respiratory airflow by thermocouple and or pressure/flow transducer, respiratory efforts by abdominal and thoracic PVDF belts, oxygen saturation by cable oximetry. Position by observation synchronized the PSG. Equipment used: [employer]. Sleep architecture The total recording duration was 363.0 minutes. The total sleep time was 265.0 minutes. The wake after sleep onset time was 68.5 minutes. The overall sleep efficiency was 73%. The latency to REM sleep was 68 minutes and the latency to sleep onset was 29.5 minutes. The sleep architecture was characterized by 9.8% stage I, 75.7% stage II, 0% stage III and 14.5% REM sleep. The total arousal index was 37.8. Oxygenation analysis The average pulse ox while awake was 93%. Minimum pulse ox during sleep was 84% during REM sleep. The patient spent approximately 6.3 minutes of the sleep time below pulse ox of 89% accounting for 1.7% of the overall recording duration Respiratory summary The patient encountered a total of 106 obstructive events of which 0 were obstructive apneas, 0 were mixed apneas and 106 obstructive hypopneas. No central apneas were noted. AHI was 22.0. Disease was worse during REM sleep with an AHI of 35.8 during REM. Sleep continuity The patient had a total of 167 arousals with an index of 37.8. The respiratory arousal index was 10.6 Periodic movement events A total of 63 periodic limb movement activity with an index of 14.3. PLM with arousals were 13 with an index of 2.9. Cardiac summary Average heart rate was 88 with a minimum heart of 82 with a max heart rate of 95 Assessment Obstructive sleep apnea, moderately severe with an AHI of 22, worse during REM sleep. Mild nocturnal oxygen desaturation Mild abnormalities sleep architecture with over representation of stage II sleep and diminished delta wave and REM High arousal index To be at 37.8 Obesity with a BMI of 47.5 loud snoring Chronic hypersomnia COPD Smoker Plan Recommend weight loss Optimize COPD Patient will benefit from CPAP therapy the patient will be asked to come into the sleep center to undergo a CPAP titration.
== END 2024-07-11 05:00 | disposition home or self-care (01) ==
LOC: 3 N SLEEP 19:34
PROVIDERS: ATTEND Internal Medicine Critical Care Medicine
DX: G47.33 Obstructive sleep apnea (adult) (pediatric) (principal); E66.9 Obesity, unspecified; J44.9 Chronic obstructive pulmonary disease, unspecified; F17.200 Nicotine dependence, unspecified, uncomplicated; Z68.42 Body mass index [BMI] 45.0-49.9, adult
CPT/HCPCS: 95810

== ENCOUNTER 2024-08-15 19:24 | Outpatient (CLI) | payer OTHER ==
--- NOTE | 2024-09-05 00:24 | P.PCN ---
Date of Procedure: 09/14/24 Operative Findings: This is a 53-year-old female patient, obese, with history of snoring, sleep fragmentation and chronic hypersomnia and sleepiness. The patient also has COPD with an FEV1 of 76% predicted and she is a chronic smoker the patient underwent a polysomnography on 07/12/2024 and the patient was found to have obstructive sleep apnea, moderately severe with an AHI of 22. Her disease was worse during REM sleep. Based on that, the patient is coming in to undergo an in lab CPAP titration. Physical findings The patient has a weight of 268 pounds with a BMI of 47.5 Technical description The patient was studied using a standard complex polysomnography protocol that included recording of the Lead II EKG, Central, occipital and frontal EEG, right and left outer canthus EOG, submental EMG, right and left anterior tibialis EMG, respiratory airflow by thermocouple and or pressure/flow transducer, respiratory efforts by abdominal and thoracic PVDF belts, oxygen saturation by cable oximetry. Position by observation synchronized the PSG. Equipment used: [place]. Stepwise CPAP titration was done to eliminate all obstructive respiratory events Sleep architecture The total recording duration was 423.5 minutes. The total sleep time was 369.0 minutes. The wake after sleep onset time was 36.5 minutes. The overall sleep efficiency was 87.1%. The latency to sleep onset was 18 minutes and the latency to REM sleep was 71 minutes. The sleep architecture was characterized by 7.6% stage I, 80.9% stage II, 0% stage III and a total of 11.5% REM sleep. The total arousal index was 10.7. CPAP titration summary The patient was started on a CPAP pressure of 5 cm of water and there was a gradual increase in the CPAP pressure by increments of 1 cm of water to achieve a maximum CPAP pressure of 10 cm of water. This was very successful titration. All sleep stages were encountered including REM sleep. The patient was studied in supine and nonsupine body position. At the same time, there was complete elimination of the nocturnal oxygen saturations and the patient was able to maintain oxygen saturation above 90% throughout this titration. Limb movement summary The patient had a total of 72 periodic limb movements with an index of 11.7. Sleep continuity summary The patient had a total of 66 arousals with an index of 10.7. The respiratory arousal index was 1.1 Cardiac summary The average heart rate was 91 with a minimum heart rate of 88 and a maximum heart rate of 96 Assessment Obstructive sleep apnea, moderately severe with an AHI of 22, worse during REM sleep. The patient underwent a successful CPAP titration. There was complete remission of the obstructive respiratory events and elevation of the nocturnal oxygen saturation at the CPAP pressure of 10 cm of water. Mild nocturnal oxygen desaturation, improved with CPAP therapy Mild abnormalities sleep architecture with over representation of stage II sleep and diminished delta wave and REM High arousal index identified during the original polysomnography, improved with CPAP therapy Obesity with a BMI of 47.5 loud snoring Chronic hypersomnia COPD Smoker Plan Initiate CPAP treatment at a pressure of 10 cm of water with a C-Flex of 3. Will offer the patient a AirFit F20 medium size fullface mask Recommend weight loss Optimize COPD Maintain good sleep hygiene measures Maintain regular sleep schedule See me back in the office in 30 to 90 days to assess clinical response and compliancy.
== END 2024-08-16 06:06 | disposition home or self-care (01) ==
LOC: 3 N SLEEP 19:24
PROVIDERS: ATTEND Internal Medicine Critical Care Medicine
DX: G47.33 Obstructive sleep apnea (adult) (pediatric) (principal); J44.9 Chronic obstructive pulmonary disease, unspecified; F17.200 Nicotine dependence, unspecified, uncomplicated; E66.9 Obesity, unspecified; Z68.42 Body mass index [BMI] 45.0-49.9, adult; Z99.89 Dependence on other enabling machines and devices
CPT/HCPCS: 95811